=== PATIENT | male | born 1940 | race Caucasian/White ===

== ENCOUNTER 2017-02-21 13:36 | Day surgery (SDC) | payer MEDICARE, OTHER ==
[~2017-02-21 13:36] MED LIST: CEFAZOLIN 2 GM-D5W BAG** 2 GM/50 ML ML IV STA; DIPRIVAN 200 MG/20 ML IV ONE; Decadron 4 MG INJ IV ONE; Lactated Ringers 1,000 ML IV ONE; Lactated Ringers 1,000 ML IV SCH; MEFOXIN 2 GM PREMIX** 2 GM/50 ML ML IV ONE; PHENYLEPHRINE HCL IV ONE; SUBLIMAZE 100 MCG/2 ML IV ONE; Sensorcaine 0.25% 10 ML ONE; Zofran 4 MG/2 ML VIAL IV ONE
[2017-02-21] MEDS ORDERED: CEFAZOLIN 2 GM-D5W BAG** 2 GM/50 ML ML IV ONE (14:15)
[2017-02-21] MEDS ORDERED: BACIGUENT 30 GM ONE (15:53)
[2017-02-21] MEDS ORDERED: DILAUDID 2 MG INJECTION ONE (16:14)
[2017-02-21 17:55] VITALS: O2SAT 93
[2017-02-21 18:04] VITALS: BP 127/80; PULSE 99
--- NOTE | 2017-02-22 07:35 | OP ---
SURGERY DATE/TIME: 02/21/2017 1525 PREOPERATIVE DIAGNOSIS: Recurrent severe bursitis, chronic bursitis of the left elbow. POSTOPERATIVE DIAGNOSIS: Recurrent severe bursitis, chronic bursitis of the left elbow. PROCEDURE: Complete excision of the left bursa with closure. SURGEON: Jorge Wick M.D. ANESTHESIA: General. COMPLICATIONS: None. CONDITION: Stable. INDICATION: The patient h ad previous I&D drainage of bursitis. He has a large sac on the left elbow. It is chronic. It is persistent. It is recurring. DESCRIPTION OF PROCEDURE: He was taken to surgery. General anesthetic. It was marked transversely. A small ellipse was taken. Hemostasis obtained with electrocautery. The bursa sac was removed. As usual there was about an [address] of bone only which was cauterized at the bottom of the base. The skin was then reapproximated with 3-0 Prolene. Sterile dressing applied. The patient tolerated the procedure satisfactorily.
== END 2017-02-21 17:45 | disposition home or self-care (01) ==
LOC: SDC 13:36
PROVIDERS: ATTEND Surgery
PROC: 0MB40ZZ Excision of Left Elbow Bursa and Ligament, Open Approach (ICD-10-PCS; principal; 2017-02-21)
DX: M71.522 Other bursitis, not elsewhere classified, left elbow (principal); E11.9 Type 2 diabetes mellitus without complications; Z79.4 Long term (current) use of insulin
CPT/HCPCS: 01710; 36415; 82962; 88304; 99100; J0690; J0694; J1100; J1170; J2370; J2405; J2704; J3010; A9270-GY

== ENCOUNTER 2019-02-25 07:35 | Day surgery (SDC) | payer MEDICARE, OTHER ==
[2019-02-25] MEDS ORDERED: Sodium Chloride 0.9(Preservative Free) 10 ML IJ ONE (07:36)
[2019-02-25] MEDS ORDERED: Xylocaine 1% Vial 30 ML PF IJ ONE (07:36)
[2019-02-25] MEDS ORDERED: Depo-Medrol 40 MG/ML IM ONE (07:36)
[2019-02-25] MEDS ORDERED: DIPRIVAN 200 MG/20 ML IV ONE (08:30)
[2019-02-25] MEDS ORDERED: Ketamine HCl 50 MG/ML ONE (08:31)
[2019-02-25] MEDS ORDERED: Lactated Ringers 1,000 ML IV ONE (11:15)
--- NOTE | 2019-02-25 15:17 | XRAY ---
12 seconds fluoroscopy time in surgery for L3-L4 HERNANDO.
--- NOTE | 2019-02-27 10:25 | XRAY ---
Indication: L3-L4 HERNANDO. Intraoperative fluoroscopy was provided for 12 seconds. 2 digital spot images submitted for interpretation demonstrates midline spinal needle tip just posterior to the L4 segment. Correlate with intraoperative findings/report.
== END 2019-02-25 09:45 | disposition home or self-care (01) ==
LOC: SDC-PAIN 07:35
PROVIDERS: ATTEND Psychiatry & Neurology Pain Medicine
DX: M54.16 Radiculopathy, lumbar region (principal); E11.9 Type 2 diabetes mellitus without complications; I10 Essential (primary) hypertension; K21.9 Gastro-esophageal reflux disease without esophagitis; I25.10 Atherosclerotic heart disease of native coronary artery without angina pectoris; Z79.899 Other long term (current) drug therapy
CPT/HCPCS: 62323; 72100; 77003; 82962; J1030; J2001; J2704; Q9966

== ENCOUNTER 2019-03-25 09:04 | Day surgery (SDC) | payer MEDICARE, OTHER ==
[2019-03-25] MEDS ORDERED: Depo-Medrol 40 MG/ML IM ONE (09:05)
[2019-03-25] MEDS ORDERED: Sodium Chloride 0.9(Preservative Free) 10 ML IJ ONE (09:05)
[2019-03-25] MEDS ORDERED: DIPRIVAN 200 MG/20 ML IV ONE (10:11)
[2019-03-25] MEDS ORDERED: Ketamine HCl 50 MG/ML ONE (10:11)
--- NOTE | 2019-03-25 12:16 | XRAY ---
Indication: Right L4-S1 HERNANDO. Intraoperative fluoroscopy was provided for 40 seconds. 4 digital spot images submitted for interpretation demonstrates posterior needle tips projecting over the expected course of the right L4-L5 nerve roots. Small amount of contrast injected for needle tip placement. Correlate with intraoperative findings/report.
--- NOTE | 2019-03-25 13:13 | XRAY ---
40 seconds fluoroscopy time in surgery for right L4-S1 HERNANDO.
[2019-03-25] MEDS ORDERED: Lactated Ringers 1,000 ML IV ONE (13:20)
== END 2019-03-25 10:43 | disposition home or self-care (01) ==
LOC: SDC-PAIN 09:04
PROVIDERS: ATTEND Psychiatry & Neurology Pain Medicine
DX: M54.16 Radiculopathy, lumbar region (principal); I10 Essential (primary) hypertension; K21.9 Gastro-esophageal reflux disease without esophagitis; I25.10 Atherosclerotic heart disease of native coronary artery without angina pectoris; Z79.899 Other long term (current) drug therapy
CPT/HCPCS: 64483; 64484; 72100; 77003; 99100; J1030; J2704; Q9966

== ENCOUNTER 2019-05-13 07:43 | Day surgery (SDC) | payer MEDICARE, OTHER ==
[2019-05-13] MEDS ORDERED: Xylocaine 1% Vial 30 ML PF IJ ONE (07:44)
[2019-05-13] MEDS ORDERED: Depo-Medrol 40 MG/ML IM ONE (07:44)
[2019-05-13] MEDS ORDERED: Marcaine 0.5% SDV 10 ML IJ ONE (07:44)
[2019-05-13] MEDS ORDERED: Decadron 4 MG INJ IV ONE (07:44)
[2019-05-13] MEDS ORDERED: DIPRIVAN 200 MG/20 ML IV ONE (09:49)
[2019-05-13] MEDS ORDERED: Ketamine HCl 50 MG/ML ONE (09:49)
--- NOTE | 2019-05-13 10:41 | XRAY ---
Indication: Right bursa injection. Intraoperative fluoroscopy was provided for 12 seconds. Single digital spot image obtained prone demonstrates needle tip adjacent to the right greater trochanter. Small amount of contrast injected for needle tip placement. Correlate with intraoperative findings/report. Incidental note of prior total hip arthroplasty.
--- NOTE | 2019-05-13 10:43 | XRAY ---
Indication: Right piriformis injection. Intraoperative fluoroscopy was provided for 20 seconds. Single digital spot image obtained prone demonstrates needle tip projecting over the expected right piriformis muscle. Small amount of contrast injected for needle tip placement. Correlate with intraoperative findings/report. Incidental note of prior total hip arthroplasty.
--- NOTE | 2019-05-13 12:28 | XRAY ---
12 seconds fluoroscopy time in surgery for right hip bursae injection.
--- NOTE | 2019-05-13 12:38 | XRAY ---
20 seconds fluoroscopy time in surgery for piriformis injection.
[2019-05-13] MEDS ORDERED: Lactated Ringers 1,000 ML IV ONE (15:23)
== END 2019-05-13 10:15 | disposition home or self-care (01) ==
LOC: SDC-PAIN 07:43
PROVIDERS: ATTEND Psychiatry & Neurology Pain Medicine
DX: M70.61 Trochanteric bursitis, right hip (principal); M79.18 Myalgia, other site; M54.31 Sciatica, right side; E11.9 Type 2 diabetes mellitus without complications; I10 Essential (primary) hypertension; I25.10 Atherosclerotic heart disease of native coronary artery without angina pectoris; K21.9 Gastro-esophageal reflux disease without esophagitis; Z79.899 Other long term (current) drug therapy
CPT/HCPCS: 20552; 20610; 72020; 73501; 77002; 82962; J1030; J1100; J2001; J2704; Q9966

== ENCOUNTER 2019-06-10 08:42 | Day surgery (SDC) | payer MEDICARE, OTHER ==
[2019-06-10] MEDS ORDERED: Sodium Chloride 0.9(Preservative Free) 10 ML IJ ONE (08:43)
[2019-06-10] MEDS ORDERED: Depo-Medrol 40 MG/ML IM ONE (08:43)
[2019-06-10] MEDS ORDERED: DIPRIVAN 200 MG/20 ML IV ONE (10:16)
[2019-06-10] MEDS ORDERED: Ketamine HCl 50 MG/ML ONE (10:17)
--- NOTE | 2019-06-10 12:47 | XRAY ---
Indication: Right L4-S1 HERNANDO. Intraoperative fluoroscopy was provided for 41 seconds. 4 digital spot images submitted for interpretation demonstrates posterior needle tips projecting over the expected course of the right L4-L5 nerve roots. Small amount of contrast injected for needle tip placement. Correlate with intraoperative findings/report.
--- NOTE | 2019-06-10 12:51 | XRAY ---
41 seconds fluoroscopy time in surgery for right L4-S1 HERNANDO.
[2019-06-10] MEDS ORDERED: Lactated Ringers 1,000 ML IV ONE (18:20)
== END 2019-06-10 10:56 | disposition home or self-care (01) ==
LOC: SDC-PAIN 08:42
PROVIDERS: ATTEND Psychiatry & Neurology Pain Medicine
DX: M54.16 Radiculopathy, lumbar region (principal); Z79.899 Other long term (current) drug therapy
CPT/HCPCS: 64479; 64480; 72100; 77003; 82962; 99100; J1030; J2704; Q9966

== ENCOUNTER 2019-08-19 07:56 | Day surgery (SDC) | payer MEDICARE, OTHER ==
[2019-08-19] MEDS ORDERED: Xylocaine 1% Vial 30 ML PF IJ ONE (07:57)
[2019-08-19] MEDS ORDERED: Decadron 4 MG INJ IV ONE (07:57)
[2019-08-19] MEDS ORDERED: Depo-Medrol 40 MG/ML IM ONE (07:57)
[2019-08-19] MEDS ORDERED: Sodium Chloride 0.9(Preservative Free) 10 ML IJ ONE (07:57)
[2019-08-19] MEDS ORDERED: DIPRIVAN 200 MG/20 ML IV ONE (09:40)
[2019-08-19] MEDS ORDERED: Ketamine HCl 50 MG/ML ONE (09:42)
--- NOTE | 2019-08-19 11:57 | XRAY ---
Indication: Right L4-S1 transforaminal HERNANDO. Intraoperative fluoroscopy was provided for 43 seconds. 3 digital spot images submitted for interpretation demonstrates posterior needle tips projecting over the expected course of the right L4 and L5 nerve roots. Small amount of contrast injected for needle tip placement. Correlate with intraoperative findings/report.
--- NOTE | 2019-08-19 11:59 | XRAY ---
Indication: Right piriformis injection. Intraoperative fluoroscopy was provided for 10 seconds. Single digital spot image submitted for interpretation demonstrates posterior needle tip projecting over the expected right piriformis muscle. Small amount of contrast injected for needle tip placement. Correlate with intraoperative findings/report.
--- NOTE | 2019-08-19 13:06 | XRAY ---
43 seconds fluoroscopy time in surgery for right L4-S1 transforaminal HERNANDO.
--- NOTE | 2019-08-19 13:06 | XRAY ---
10 seconds fluoroscopy time in surgery for right piriformis muscle injection.
[2019-08-19] MEDS ORDERED: Lactated Ringers 1,000 ML IV ONE (13:30)
== END 2019-08-19 10:10 | disposition home or self-care (01) ==
LOC: SDC-PAIN 07:56
PROVIDERS: ATTEND Psychiatry & Neurology Pain Medicine
DX: M54.16 Radiculopathy, lumbar region (principal); M79.18 Myalgia, other site; M54.31 Sciatica, right side; I10 Essential (primary) hypertension; K21.9 Gastro-esophageal reflux disease without esophagitis; Z79.899 Other long term (current) drug therapy
CPT/HCPCS: 20552; 64483; 64484; 72020; 72100; 77002; 77003; 82962; 99100; J1030; J1100; J2001; J2704; Q9966

== ENCOUNTER 2019-12-09 09:30 | Day surgery (SDC) | payer MEDICARE, OTHER ==
[2019-12-09] MEDS ORDERED: Sodium Chloride 0.9(Preservative Free) 10 ML IJ ONE (09:31)
[2019-12-09] MEDS ORDERED: Depo-Medrol 40 MG/ML IM ONE (09:31)
[2019-12-09] MEDS ORDERED: Decadron 4 MG INJ IV ONE (09:31)
[2019-12-09] MEDS ORDERED: Xylocaine 1% Vial 30 ML PF IJ ONE (09:31)
[2019-12-09] MEDS ORDERED: Ketamine HCl 50 MG/ML ONE (11:13)
[2019-12-09] MEDS ORDERED: DIPRIVAN 200 MG/20 ML IV ONE (11:13)
--- NOTE | 2019-12-09 11:54 | XRAY ---
Indication: Right L3-S1 HERNANDO. Intraoperative fluoroscopy was provided for 43 seconds. 4 digital spot images submitted for interpretation demonstrates posterior needle tips projecting over the expected course the right L4 and L5 nerve roots. Small amount of contrast injected for both needle tip placement. Correlate with intraoperative findings/report.
--- NOTE | 2019-12-09 11:57 | XRAY ---
17 seconds fluoroscopy time in surgery for right piriformis injection.
--- NOTE | 2019-12-09 12:07 | XRAY ---
43 seconds fluoroscopy time in surgery for right L3-L5 transforaminal HERNANDO.
--- NOTE | 2019-12-09 14:25 | XRAY ---
Indication: Right piriformis injection. Intraoperative fluoroscopy was provided for 17 seconds. Single digital spot image submitted for interpretation demonstrates posterior needle tip projecting over the expected right piriformis muscle. Small amount of contrast injected for needle tip placement. Correlate with intraoperative findings/report.
[2019-12-09] MEDS ORDERED: Lactated Ringers 1,000 ML IV ONE (14:32)
== END 2019-12-09 11:47 | disposition home or self-care (01) ==
LOC: SDC-PAIN 09:30
PROVIDERS: ATTEND Psychiatry & Neurology Pain Medicine
DX: M54.16 Radiculopathy, lumbar region (principal); M79.18 Myalgia, other site; E11.9 Type 2 diabetes mellitus without complications; I10 Essential (primary) hypertension; K21.9 Gastro-esophageal reflux disease without esophagitis; I25.10 Atherosclerotic heart disease of native coronary artery without angina pectoris; J44.9 Chronic obstructive pulmonary disease, unspecified; Z79.899 Other long term (current) drug therapy
CPT/HCPCS: 20552; 64483; 64484; 72020; 72100; 77002; 77003; 82962; 99100; J1030; J1100; J2001; J2704; Q9966

== ENCOUNTER 2020-02-03 09:09 | Day surgery (SDC) | payer MEDICARE, OTHER ==
[2020-02-03] MEDS ORDERED: Xylocaine 1% Vial 30 ML PF IJ ONE (09:10)
[2020-02-03] MEDS ORDERED: Sodium Chloride 0.9(Preservative Free) 10 ML IJ ONE (09:10)
[2020-02-03] MEDS ORDERED: Depo-Medrol 40 MG/ML IM ONE (09:10)
[2020-02-03] MEDS ORDERED: Decadron 4 MG INJ IV ONE (09:10)
[2020-02-03] MEDS ORDERED: Ketamine HCl 50 MG/ML ONE (10:03)
[2020-02-03] MEDS ORDERED: DIPRIVAN 200 MG/20 ML IV ONE (10:03)
--- NOTE | 2020-02-03 11:02 | XRAY ---
Indication: Right L4-S1 transforaminal HERNANDO. Intraoperative fluoroscopy was provided for 43 seconds. 4 digital spot images submitted for interpretation demonstrates posterior needle tips projecting over the expected course of the right L5 and S1 nerve roots. Small amount of contrast injected for needle tip placement. Correlate with intraoperative findings/report.
--- NOTE | 2020-02-03 11:04 | XRAY ---
Indication: Right piriformis injection HERNANDO. Intraoperative fluoroscopy was provided for 9 seconds. Single digital spot image submitted for interpretation demonstrates posterior needle tip projecting over the expected right piriformis muscle. Small amount of contrast injected for needle tip placement. Correlate with intraoperative findings/report.
--- NOTE | 2020-02-03 11:49 | XRAY ---
9 seconds of fluoroscopy was used in surgery for a right piriformis injection.
--- NOTE | 2020-02-03 11:59 | XRAY ---
43 seconds of fluoroscopy was used in surgery for a right L4-L5 and L-S1 transforaminal HERNANDO.
[2020-02-03] MEDS ORDERED: Lactated Ringers 1,000 ML IV ONE (15:55)
== END 2020-02-03 10:35 | disposition home or self-care (01) ==
LOC: SDC-PAIN 09:09
PROVIDERS: ATTEND Psychiatry & Neurology Pain Medicine
DX: M54.16 Radiculopathy, lumbar region (principal); M79.18 Myalgia, other site; I10 Essential (primary) hypertension; I25.10 Atherosclerotic heart disease of native coronary artery without angina pectoris; K21.9 Gastro-esophageal reflux disease without esophagitis; Z79.899 Other long term (current) drug therapy
CPT/HCPCS: 20552; 64483; 64484; 72020; 72100; 77002; 77003; 99100; J1030; J1100; J2001; J2704; Q9966

== ENCOUNTER 2020-08-10 08:02 | Day surgery (SDC) | payer MEDICARE, OTHER ==
[2020-08-10] MEDS ORDERED: Sodium Chloride 0.9(Preservative Free) 10 ML IJ ONE (08:03)
[2020-08-10] MEDS ORDERED: Decadron 4 MG INJ IV ONE (08:03)
[2020-08-10] MEDS ORDERED: BUPIVACAINE 0.5% VIAL IJ ONE (08:03)
[2020-08-10] MEDS ORDERED: Depo-Medrol 40 MG/ML IM ONE (08:03)
[2020-08-10] MEDS ORDERED: Xylocaine 1% Vial 30 ML PF IJ ONE (08:03)
[2020-08-10] MEDS ORDERED: Ketamine HCl 50 MG/ML ONE (09:47)
[2020-08-10] MEDS ORDERED: DIPRIVAN 200 MG/20 ML IV ONE (09:47)
[2020-08-10] MEDS ORDERED: MORPHINE SULFATE 10 MG/ML ONE (10:18)
--- NOTE | 2020-08-10 10:49 | XRAY ---
Indication: Right SI joint and right piriformis injection. Intraoperative fluoroscopy was provided for 14 seconds. 3 digital spot images submitted for interpretation demonstrates posterior needle tip projecting over the inferior right SI joint. Second posterior needle tip projects over the expected right piriformis muscle with small amount of contrast injected for needle tip placement. Correlate with intraoperative findings/report.
--- NOTE | 2020-08-10 10:51 | XRAY ---
14 seconds fluoroscopy time in surgery for right SI joint and right piriformis muscle injections.
--- NOTE | 2020-08-10 10:51 | XRAY ---
Indication: Right L4-S1 transforaminal HERNANDO. Intraoperative fluoroscopy was provided for 1 minute 7 seconds. 4 digital spot images submitted for interpretation demonstrates posterior needle tips projecting over the expected right L4 and L5 nerve roots. Small amount of contrast injected for needle tip placement. Correlate with intraoperative findings/report.
--- NOTE | 2020-08-10 10:51 | XRAY ---
1 minute and 7 seconds fluoroscopy time in surgery for right L4-S1 caudal HERNANDO.
[2020-08-10] MEDS ORDERED: Lactated Ringers 1,000 ML IV ONE (15:26)
== END 2020-08-10 10:34 | disposition home or self-care (01) ==
LOC: SDC 08:02 → SDC-PAIN 08:02
PROVIDERS: ATTEND Psychiatry & Neurology Pain Medicine
DX: M47.816 Spondylosis without myelopathy or radiculopathy, lumbar region (principal); M46.1 Sacroiliitis, not elsewhere classified; M79.18 Myalgia, other site; M60.9 Myositis, unspecified; M54.31 Sciatica, right side; E11.9 Type 2 diabetes mellitus without complications; I10 Essential (primary) hypertension; I25.10 Atherosclerotic heart disease of native coronary artery without angina pectoris; K21.9 Gastro-esophageal reflux disease without esophagitis; Z79.899 Other long term (current) drug therapy
CPT/HCPCS: 20552; 64451; 64483; 64484; 72100; 72202; 77002; 77003; 82947; 82962; 99100; J1030; J1100; J2001; J2270; J2704; Q9966

== ENCOUNTER 2020-10-05 08:03 | Day surgery (SDC) | payer MEDICARE, OTHER ==
[2020-10-05] MEDS ORDERED: Depo-Medrol 40 MG/ML IM ONE (08:04)
[2020-10-05] MEDS ORDERED: Sodium Chloride 0.9(Preservative Free) 10 ML IJ ONE (08:04)
[2020-10-05] MEDS ORDERED: Xylocaine 1% Vial 30 ML PF IJ ONE (08:04)
[2020-10-05] MEDS ORDERED: DIPRIVAN 200 MG/20 ML IV ONE (09:43)
[2020-10-05] MEDS ORDERED: Ketamine HCl 50 MG/ML ONE (09:43)
--- NOTE | 2020-10-05 11:34 | XRAY ---
Indication: Caudal HERNANDO. Intraoperative fluoroscopy provided for 22 seconds. 4 digital spot images submitted for interpretation demonstrates midline posterior caudal needle tip projecting posterior to mid sacrum. Small amount of contrast injected for needle tip placement. Correlate with intraoperative findings/report.
--- NOTE | 2020-10-05 11:37 | XRAY ---
22 seconds fluoroscopy time in surgery for caudal HERNANDO.
[2020-10-05] MEDS ORDERED: Lactated Ringers 1,000 ML IV ONE (16:08)
== END 2020-10-05 10:22 | disposition home or self-care (01) ==
LOC: SDC-PAIN 08:03
PROVIDERS: ATTEND Psychiatry & Neurology Pain Medicine
DX: M54.16 Radiculopathy, lumbar region (principal); I25.10 Atherosclerotic heart disease of native coronary artery without angina pectoris; I10 Essential (primary) hypertension; K21.9 Gastro-esophageal reflux disease without esophagitis; Z79.899 Other long term (current) drug therapy
CPT/HCPCS: 62323; 72220; 77003; 82947; J1030; J2001; J2704; Q9966

== ENCOUNTER 2020-12-14 07:50 | Day surgery (SDC) | payer MEDICARE, OTHER ==
[2020-12-14] MEDS ORDERED: Xylocaine 1% Vial 30 ML PF IJ ONE (07:51)
[2020-12-14] MEDS ORDERED: BUPIVACAINE 0.5% VIAL IJ ONE (07:51)
[2020-12-14] MEDS ORDERED: Depo-Medrol 40 MG/ML IM ONE (07:51)
[2020-12-14] MEDS ORDERED: Sodium Chloride 0.9(Preservative Free) 10 ML IJ ONE (07:51)
[2020-12-14] MEDS ORDERED: DIPRIVAN 200 MG/20 ML IV ONE (08:54)
--- NOTE | 2020-12-14 10:42 | XRAY ---
Indication: Right hip injection. Intraoperative fluoroscopy provided for 10 seconds. Single digital spot image obtained prone submitted for interpretation demonstrates needle tip just lateral to right greater trochanter. Small amount of contrast injected for needle tip placement. Correlate with intraoperative findings/report. Incidental incompletely visualized total hip arthroplasty.
--- NOTE | 2020-12-14 10:44 | XRAY ---
Indication: Caudal HERNANDO. Intraoperative fluoroscopy provided for 27 seconds. 3 digital spot images submitted for interpretation demonstrates posterior midline needle tip projecting over sacrococcygeal junction. Small amount of contrast injected for needle tip placement. Correlate with intraoperative findings/report.
--- NOTE | 2020-12-14 11:00 | XRAY ---
27 seconds fluoroscopy time in surgery for caudal HERNANDO.
--- NOTE | 2020-12-14 11:10 | XRAY ---
10 seconds fluoroscopy time in surgery for greater trochanteric injection of the right hip.
[2020-12-14] MEDS ORDERED: Lactated Ringers 1,000 ML IV ONE (15:26)
== END 2020-12-14 09:22 | disposition home or self-care (01) ==
LOC: SDC-PAIN 07:50
PROVIDERS: ATTEND Psychiatry & Neurology Pain Medicine
DX: M54.16 Radiculopathy, lumbar region (principal); M70.61 Trochanteric bursitis, right hip; I10 Essential (primary) hypertension; I25.10 Atherosclerotic heart disease of native coronary artery without angina pectoris; Z79.899 Other long term (current) drug therapy
CPT/HCPCS: 20610; 62323; 72020; 73501; 77002; 77003; 82947; J1030; J2001; J2704

== ENCOUNTER 2021-05-03 06:19 | Day surgery (SDC) | payer MEDICARE, OTHER ==
[2021-05-03] MEDS ORDERED: Sodium Chloride 0.9(Preservative Free) 10 ML IJ ONE (06:20)
[2021-05-03] MEDS ORDERED: Xylocaine 1% Vial 30 ML PF IJ ONE (06:20)
[2021-05-03] MEDS ORDERED: CEFAZOLIN 2 GM-D5W BAG IV ONE (06:20)
[2021-05-03] MEDS ORDERED: DIPRIVAN 200 MG/20 ML IV ONE (06:53)
[2021-05-03] MEDS ORDERED: MORPHINE SULFATE 2 MG INJ ONE ×2 (08:32→08:46)
--- NOTE | 2021-05-03 10:12 | XRAY ---
Indication: Spinal cord stimulator insertion. Intraoperative fluoroscopy provided for 2 minutes 44 seconds. 2 digital spot images submitted for interpretation demonstrates epidural lead tip terminating at recorded T8 level. Correlate with intraoperative findings/report.
--- NOTE | 2021-05-03 10:22 | XRAY ---
2 minutes and 44 seconds fluoroscopy time in surgery for placement of spinal cord stimulator.
[2021-05-03] MEDS ORDERED: Lactated Ringers 1,000 ML IV ONE (15:17)
== END 2021-05-03 08:50 | disposition home or self-care (01) ==
LOC: SDC-PAIN 06:19
PROVIDERS: ATTEND Psychiatry & Neurology Pain Medicine
DX: M96.1 Postlaminectomy syndrome, not elsewhere classified (principal); E11.9 Type 2 diabetes mellitus without complications; Z79.899 Other long term (current) drug therapy
CPT/HCPCS: 63650; 72100; 77002; 82947; C1778; 99100; J0690; J2001; J2270; J2704

== ENCOUNTER 2021-09-15 13:34 | Emergency (ER) | payer MEDICARE, OTHER ==
--- NOTE | 2021-09-15 13:37 | ERPHSYRPT ---
- History of Present Illness Time Seen by Provider: 09/15/21 13:37 Source: patient, EMS Exam Limitations: no limitations Physician History: This is an 81-year-old right-handed white male patient of Dr. Gutierrez who presents to the emergency department via EMS after slipping and falling on the ice. He hit his right shoulder. He has no complaints of any head or neck injury or pain. There was no loss of consciousness. Patient is diabetic, has a history of hypertension, coronary artery disease, COPD and elevated cholesterol. Patient is on Plavix and Celebrex. Patient has cardiac stents in place. He denies chest pain. He denies shortness of breath. Occurred: just prior to arrival (Right shoulder) Reason for Fall: slipped (Slipped on ice) Injuries/Pain Location: upper extremity Loss of Consciousness: no loss of consciousness Quality: aching Severity of Pain-Max: moderate Severity of Pain-Current: moderate Associated Symptoms (Fall): extremity injury (Right shoulder), No neck pain Allergies/Adverse Reactions: morphine Adverse Reaction (Verified 02/21/17 17:55) Home Medications: Aspirin 81 mg PO DAILY 02/23/15 [History] Celecoxib 100 mg [celeBREX 100 MG] 200 mg PO DAILY 02/23/15 [History] Enalapril Maleate 10 mg [Vasotec 10 MG] 10 mg PO DAILY 02/23/15 [History] Metformin HCl 500 mg [Glucophage 500 MG] 750 mg PO DAILY 02/23/15 [History] hydroCHLOROthiazide [Hydrochlorothiazide] 12.5 mg PO DAILY 02/23/15 [History] Gabapentin 800 mg PO TID 02/05/17 [History] Atorvastatin Calcium [Lipitor] 20 mg PO DAILY 05/23/20 [History] Clopidogrel Bisulfate 75 mg [PLAVIX 75 MG Tablet] 75 mg PO DAILY 05/23/20 [History] Metoprolol Tartrate 25 mg [Lopressor 25MG Tab] 25 mg PO DAILY 05/23/20 [History] Hx Tetanus, Diphtheria Vaccination/Date Given: No Hx Influenza Vaccination/Date Given: No Hx Pneumococcal Vaccination/Date Given: No Travel Risk - International Travel Have you traveled outside of the country in past 3 weeks: No - Coronavirus Screening Are you exhibiting any of the following symptoms?: No Close contact with a COVID-19 positive Pt in past 14-21 Days: No - Review of Systems Constitutional: No Symptoms Eyes: No Symptoms Ears, Nose, & Throat: No Symptoms Respiratory: No Symptoms Cardiac: No Symptoms Abdominal/Gastrointestinal: No Symptoms Genitourinary Symptoms: No Symptoms Musculoskeletal: Fall, Injury (Right shoulder) Skin: No Symptoms Neurological: No Symptoms Psychological: No Symptoms Endocrine: No Symptoms Hematologic/Lymphatic: No Symptoms Immunological/Allergic: No Symptoms All Other Systems: Reviewed and Negative - Past Medical History Pertinent Past Medical History: Yes Neurological History: No Pertinent History ENT History: No Pertinent History Cardiac History: Coronary Artery Disease, High Cholesterol, Hypertension, Myocardial Infarction (PR), Other Respiratory History: Bronchitis, COPD, Emphysema Endocrine Medical History: Diabetes Type II Musculoskeletal History: Osteoarthritis GI Medical History: Diverticulitis History: Other Psycho-Social History: No Pertinent History Male Reproductive Disorders: No Pertinent History Other Medical History: PT. HAS THREE CARDIAC STENTS. SEE LIST IN START. RECENT KIDNEY STONE REMOVED. 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 cyst removed from colon - Social History Smoking Status: Current every day smoker How long have you smoked: 50 Exposure to second hand smoke: No Drug Use: none Patient Lives Alone: No - Nursing Vital Signs Nursing Vital Signs: Initial Vital Signs Temperature 97.6 F 09/15/21 13:34 Pulse Rate 65 09/15/21 13:34 Respiratory Rate 20 09/15/21 13:34 Blood Pressure 114/72 09/15/21 13:34 O2 Sat by Pulse Oximetry 96 09/15/21 13:34 Pain Scale Pain Intensity 5 - Evan Coma Score Best Eye Response ([place]): (4) open spontaneously Best Verbal Response ([place]): (5) oriented Best Motor Response ([place]): (6) obeys commands Evan Total: 15 - Physical Exam General Appearance: mild distress, alert, anxiety Head Injury: no evidence of injury Eye Exam: PERRL/EOMI, eyes nml inspection ENT Exam: airway nml, nml ext.inspection Neck Exam: supple, trachea midline, full range of motion, normal alignment, normal inspection Respiratory/Chest Exam: normal breath sounds, No chest tenderness, No respiratory distress, No ecchymosis, No crepitus Cardiovascular Exam: normal heart sounds, regular rate/rhythm Gastrointestinal Exam: soft, normal bowel sounds, No tenderness Rectal Exam: not done Back Exam: normal inspection, normal range of motion, No CVA tenderness, No vertebral tenderness Extremity Exam: normal range of motion, pelvis stable, deformities (Right shoulder), limited range of motion (Right shoulder), bony point tenderness, pain with movement (Upper humerus/right shoulder right shoulder), other (Question of fullness at the right anterior shoulder) Neurologic Exam: alert, oriented x 3, cooperative, step down nurse II-XII nml as tested, normal mood/affect, nml cerebellar function, nml station & gait, sensation nml Skin Exam: normal color, warm, dry SpO2 Interpretation: normal O2 Delivery: Room Air - Course Nursing assessment & vital signs reviewed: Yes Ordered Tests: Active Orders 24 hr Category Date Time Status Sling Application STAT Care 09/15/21 14:23 Active CLAVICLE Stat Exams 09/15/21 14:07 Completed HUMERUS Stat Exams 09/15/21 13:45 Completed SHOULDER Stat Exams 09/15/21 13:45 Completed CBC W DIFF Stat Lab 09/15/21 14:23 Ordered PT INR [PROTIME WITH INR] Stat Lab 09/15/21 14:23 Ordered Medication Summary Discontinued Medications Generic Name Dose Route Start Last Admin Trade Name Kishoreq PRN Reason Stop Dose Admin Hydromorphone HCl 0.5 mg 09/15/21 13:44 09/15/21 13:48 Hydromorphone 1 Mg/1ml Inj 1 Mg/Ml Syringe IV 09/15/21 13:45 0.5 mg STAT ONE Administration Hydromorphone HCl Confirm 09/15/21 13:47 Hydromorphone 1 Mg/1ml Inj 1 Mg/Ml Syringe Administered 09/15/21 13:48 Dose 1 mg .ROUTE .STK-MED ONE - Progress Progress: improved, pain not gone completely Progress Note: 09/15/21 14:32 X-rays of the right shoulder, right humerus and right clavicle were performed. The findings are same on all studies. That is, nondisplaced humeral head/neck fracture with tiny displaced superior lateral fracture fragment. There are no other bony fractures present in any of the studies Counseled pt/family regarding: lab results, diagnosis, need for follow-up, rad results - Departure Departure Disposition: Home Clinical Impression: Fracture of humeral head, closed Condition: Stable Critical Care Time: No Referrals: RITO GUTIERREZ MD [Primary Care Provider] - Follow up/PCP as directed Additional Instructions: Ice pack to area 3 times daily for the next 72 hours. Wear the sling for comfort. Stop your Plavix and Celebrex. Return to the emergency department if your swelling in the area increases or the pain in the area increases. Follow- up with your orthopedic surgeon of choice at the scheduled date and time. If you are unable to secure an appointment with your orthopedic surgeon, follow-up with [facility] orthopedic clinic on Saturday September 18, 2021 at 8 AM. It is a walk-in clinic and you do not need a scheduled appointment. Call your veneer joiner on Saturday, September 18, 2021 to determine when to restart your Plavix and Celebrex. Prescriptions: Oxycodone HCl/Acetaminophen [Percocet 5-325 mg Tablet] 1 each PO Q8H PRN PRN #10 tablet MDD 3 PRN Reason: Moderate To Severe Pain
[2021-09-15] MEDS ORDERED: Hydromorphone 1 mg/ml Injection IV ONE ×2 (13:44→14:58)
[2021-09-15] MEDS ORDERED: Hydromorphone 1 mg/ml Injection ONE ×2 (13:47→15:11)
--- NOTE | 2021-09-15 14:18 | XRAY ---
Indication: Pain following fall. Comparison: None 3 view right shoulder demonstrates osteopenia, essentially nondisplaced humeral head/neck fracture with tiny displaced superior lateral fracture fragment, advanced acromioclavicular degenerative arthropathy, and partially visualized bilateral cervical fusion hardware. No other bony, articular, or soft tissue abnormalities.
--- NOTE | 2021-09-15 14:18 | XRAY ---
Indication: Pain following fall. Comparison: None 2 view right clavicle demonstrates osteopenia, essentially nondisplaced humeral head/neck fracture with tiny displaced superior lateral fracture fragment, advanced acromioclavicular degenerative arthropathy, and partially visualized bilateral cervical fusion hardware. No other bony, articular, or soft tissue abnormalities.
--- NOTE | 2021-09-15 14:20 | XRAY ---
Indication: Pain following fall. Comparison: None 2 view right humerus demonstrates osteopenia and nondisplaced humeral head/neck fracture. No other bony, articular, or soft tissue abnormalities.
[2021-09-15 15:02] LABS: INR 1.13 (0.8-3.0); PROTIME 13.3 SECONDS (9.4-12.5)
[2021-09-15 15:30] LABS: Absolute Neutrophil Ct (ANC) 10.26 (1.4-6.9); Basophil (Absolute #) 0.04 (0-0.4); Eosinophil % 1.1 % (0.00-5.0); Eosinophil (Absolute #) 0.14 (0-0.5); Hematocrit 57.8 % (42-50); Hemoglobin 18.6 gm/dl (12.5-18.0); Lymphocyte (Absolute #) 1.27 (1.0-4.6); Mean Cell Volume 99.1 fl (78-100); Mean Corpuscular Hemoglobin 31.9 pg (26-32); Mean Corpuscular Hgb Concent. 32.2 g/dl (32-36); Mean Platelet Volume 9.9 fl (7.5-11.0); Monocyte (Absolute #) 1.05 (0.0-1.3); Monocytes % 8.2 % (0.0-12.0); Neutrophil % 80.4 % (36.0-66.0); Platelet Count 216 K/mm3 (150-450); Red Blood Count 5.83 M/mm3 (4.1-5.6); Red Cell Distribution Width 16.1 % (11.5-14.0); White Blood Count 12.8 K/mm3 (4.0-10.5)
[2021-09-15 16:58] VITALS: BP 113/57; PULSE 76; O2SAT 98
== END 2021-09-15 16:58 | disposition home or self-care (01) ==
LOC: ED 13:34
DX: S42.214A Unspecified nondisplaced fracture of surgical neck of right humerus, initial encounter for closed fracture (principal); W00.0XXA Fall on same level due to ice and snow, initial encounter; I25.10 Atherosclerotic heart disease of native coronary artery without angina pectoris; E78.5 Hyperlipidemia, unspecified; I10 Essential (primary) hypertension; J43.9 Emphysema, unspecified; E11.9 Type 2 diabetes mellitus without complications; Z79.84 Long term (current) use of oral hypoglycemic drugs; Z72.0 Tobacco use; Z79.01 Long term (current) use of anticoagulants; Z79.899 Other long term (current) drug therapy; Z79.891 Long term (current) use of opiate analgesic
CPT/HCPCS: 36415; 73000; 73030; 73060; 85025; 85610; 96374; 99284; J1170

== ENCOUNTER 2024-03-12 14:25 | Observation (INO) | payer MEDICARE, OTHER ==
--- NOTE | 2024-03-12 15:59 | XRAY ---
Indication: Swelling. Comparison: None 3 view left elbow demonstrates osteopenia, faint medial/lateral elbow heterotopic ossifications, and small spurring medial epicondyle/olecranon process. Posterior soft tissue swelling either posttraumatic versus inflammatory/infectious versus bursitis. No other bony, articular, or soft tissue abnormalities.
[2024-03-12 16:06] LABS: Absolute Neutrophil Ct (ANC) 6.27 x10^3/uL (1.78-5.38); BASOPHIL % 0.5 % (0.2-1.2); Basophil (Absolute #) 0.05 x10^3/uL (0.01-0.08); Eosinophil % 0.9 % (0.8-7.0); Eosinophil (Absolute #) 0.08 x10^3/uL (0.04-0.54); Hematocrit 57.6 % (40.1-51.0); Hemoglobin 18.7 g/dL (13.7-17.5); IMMATURE GRAN # 0.04 x10^3u/L (0.001-0.031); IMMATURE GRAN % 0.4 % (0.001-0.429); Lymphocyte (Absolute #) 1.96 x10^3/uL (1.32-3.57); Lymphocytes % 20.8 % (21.8-53.1); Mean Cell Volume 97.5 fL (79.0-92.2); Mean Corpuscular Hemoglobin 31.6 pg (25.7-32.2); Mean Corpuscular Hgb Concent. 32.5 g/dL (32.3-36.5); Mean Platelet Volume 9.4 fL (9.4-12.4); Monocyte (Absolute #) 1.01 x10^3/uL (0.30-0.82); Monocytes % 10.7 % (5.3-12.2); Neutrophil % 66.7 % (34.0-67.9); Platelet Count 239 x10^3/uL (163-337); Red Blood Count 5.91 x10^6/uL (4.63-6.08); Red Cell Distribution Width 14.6 % (11.6-14.4); White Blood Count 9.4 x10^3/uL (4.23-9.07)
[2024-03-12 16:26] LABS: ALBUMIN 4.2 g/dL (3.5-5.0); ANION GAP 18.6 MEQ/L (5-15); BILIRUBIN,TOTAL 1.4 mg/dL (0.2-1.3); Calcium 9.5 mg/dL (8.4-10.2); Creatinine 1 0.83 mg/dL (0.66-1.25); EST GLOMERULAR FILTRATION RATE 86.8 ML/MIN; Potassium 4.1 mmol/L (3.5-5.1); Total Protein 7.5 g/dL (6.3-8.2)
--- NOTE | 2024-03-12 16:48 | ERPHSYRPT ---
- History of Present Illness Time Seen by Provider: 03/12/24 15:27 Source: patient, family Exam Limitations: no limitations Patient Subjective Stated Complaint: C/O swelling to left elbow for a few days. Indicates he has a reoccurring abcess to this area. Triage Nursing Assessment: Patient ambulated back to ER. He is alert and oriented; hard of hearing. Left elbow is red, hot, swollen. Pustules noted to area. Physician History: 84 years old male up-to-date with tetanus [id number] presented to the ER with 4 to 5 days history of increasing pain and swelling left elbow which got remarkably swollen and painful since yesterday. Subjective feeling of fever and chills. Difficulty movements of the left elbow. No numbness or tingling/weakness distally. Denies any fall or trauma. Reports having similar kind of swelling in the past needing surgical intervention. Allergies/Adverse Reactions: morphine Adverse Reaction (Verified 03/12/24 18:22) PT STATES "IN LARGE DOSES I GET MOUTHY AND MEAN" STATES GETS CONFUSED Home Medications: Aspirin 81 mg PO HS 02/23/15 [History] Celecoxib 100 mg [celeBREX 100 MG] 200 mg PO DAILY 02/23/15 [History] Enalapril Maleate 10 mg [Vasotec 10 MG] 10 mg PO DAILY 02/23/15 [History] hydroCHLOROthiazide [Hydrochlorothiazide] 12.5 mg PO DAILY 02/23/15 [History] Gabapentin 800 mg PO TID 02/05/17 [History] Atorvastatin Calcium [Lipitor] 20 mg PO HS 05/23/20 [History] Clopidogrel Bisulfate [PLAVIX Tablet] 75 mg PO HS 05/23/20 [History] Metoprolol Tartrate 25 mg [Lopressor 25MG Tab] 25 mg PO HS 05/23/20 [History] Empagliflozin [Jardiance] 10 mg PO DAILY 03/12/24 [History] Fluticasone/Umeclidin/Vilanter [Trelegy Ellipta 100-62.5-25] 1 puff IH DAILY 03/12/24 [History] Hx Tetanus, Diphtheria Vaccination/Date Given: Yes Hx Influenza Vaccination/Date Given: No Hx Pneumococcal Vaccination/Date Given: No Immunizations Up to Date: Yes Travel Risk - International Travel Have you traveled outside of the country in past 3 weeks: No - Emerging Infectious Disease Are you exhibiting symptoms associated with any current EIDs: No - Review of Systems Constitutional: Fever, Chills Eyes: No Symptoms Ears, Nose, & Throat: No Symptoms Respiratory: No Symptoms Cardiac: No Symptoms Abdominal/Gastrointestinal: No Symptoms Genitourinary Symptoms: No Symptoms Musculoskeletal: Joint Redness, Joint Pain, Joint Swelling Neurological: No Symptoms Endocrine: No Symptoms Hematologic/Lymphatic: No Symptoms - Past Medical History Pertinent Past Medical History: Yes Neurological History: No Pertinent History ENT History: No Pertinent History Cardiac History: Coronary Artery Disease, High Cholesterol, Hypertension, Myocardial Infarction ([place]), Other Respiratory History: Bronchitis, COPD, Emphysema Endocrine Medical History: Diabetes Type II Musculoskeletal History: Osteoarthritis GI Medical History: Diverticulitis History: Other Psycho-Social History: No Pertinent History Male Reproductive Disorders: No Pertinent History Other Medical History: PT. HAS THREE CARDIAC STENTS. SEE LIST IN START. RECENT KIDNEY STONE REMOVED. 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 cyst removed from colon - Social History Smoking Status: Current every day smoker How long have you smoked: 60 Exposure to second hand smoke: No Drug Use: none Patient Lives Alone: No - Social Determinants of Health Will the patient participate in the screening: Yes Do you worry about a steady place to live?: No Do you have any problems with any of the following?: No known problems In the past 12 months,have you had to go without utilities?: No Transportation Issues: No Has anyone in your support network made you feel unsafe?: No Have you or anyone in your house had to go without enough: No - Nursing Vital Signs Nursing Vital Signs: Initial Vital Signs Temperature 98 F 03/12/24 15:03 Pulse Rate 105 H 03/12/24 15:03 Respiratory Rate 18 03/12/24 15:03 Blood Pressure 155/82 03/12/24 15:03 O2 Sat by Pulse Oximetry 95 03/12/24 15:03 Pain Scale Pain Intensity 8 - Physical Exam General Appearance: no apparent distress, alert Neck Exam: normal inspection, full range of motion Cardiovascular/Respiratory Exam: normal breath sounds, regular rate/rhythm Back Exam: normal inspection Shoulder Exam: normal inspection, non-tender, no evidence of injury Elbow/Forearm Exam: limited ROM, pain, soft tissue tenderness, swelling (Left elbow with positive fluctuation. Diffuse swelling. Erythema. Tenderness. Limited range of motion secondary to swelling) Hand Exam: normal inspection, non-tender, no evidence of injury, normal ROM Neuro/Tendon Exam: normal sensation, normal tendon functions Mental Status Exam: alert, oriented x 3, cooperative Skin Exam: normal color SpO2 Interpretation: normal SpO2: 95 O2 Delivery: Room Air Ordered Tests: Medication Summary Discontinued Medications Generic Name Dose Route Start Last Admin Trade Name Freq PRN Reason Stop Dose Admin Acetaminophen 650 mg 03/12/24 18:59 Acetaminophen 325 Mg Tablet PO 04/11/24 18:58 Q6H PRN PRN PAIN AND/OR FEVER Hydrocodone Bitart/Acetaminophen 1 tablet 03/12/24 18:59 03/13/24 02:45 Hydrocodone/Acetamin 10-325 Mg Tablet PO 03/17/24 18:58 1 tablet Q6H PRN PRN Administration PAIN Empagliflozin 10 mg 03/13/24 10:00 03/13/24 12:35 Empagliflozin 10 Mg Tablet PO 04/12/24 09:59 10 mg DAILY COLLEEN Administration Fentanyl Citrate 50 mcg 03/12/24 17:25 03/12/24 17:31 Fentanyl Citrate 100 Mcg/2 Ml* Vial IV 03/12/24 17:26 50 mcg STAT ONE Administration Fentanyl Citrate Confirm 03/12/24 17:30 Fentanyl Citrate 100 Mcg/2 Ml* Vial Administered 03/12/24 17:31 Dose 100 mcg .ROUTE .STK-MED ONE Fentanyl Citrate Confirm 03/13/24 11:23 Fentanyl Citrate 100 Mcg/2 Ml* Vial Administered 03/13/24 11:24 Dose 100 mcg .ROUTE .STK-MED ONE Gabapentin Confirm 03/12/24 23:31 Gabapentin 400 Mg Capsule Administered 03/12/24 23:32 Dose 800 mg .ROUTE .STK-MED ONE Gabapentin 800 mg 03/12/24 22:00 03/13/24 12:34 Gabapentin 400 Mg Capsule PO 04/11/24 21:59 800 mg TID COLLEEN Administration Hydrochlorothiazide 12.5 mg 03/13/24 10:00 03/13/24 12:34 Hydrochlorothiazide 25 Mg Tablet PO 04/12/24 09:59 12.5 mg DAILY COLLEEN Administration Hydromorphone HCl Confirm 03/13/24 11:23 Hydromorphone 1 Mg/1ml Inj Administered 03/13/24 11:24 Dose 1 mg .ROUTE .STK-MED ONE Piperacillin Sod/Tazobactam 100 mls @ 200 mls/hr 03/12/24 16:12 03/12/24 17:27 Sod 3.375 gm/ Sodium Chloride IV 03/12/24 16:41 200 mls/hr STAT ONE Administration Clindamycin HCl/Dextrose 600 mg in 50 mls @ 100 mls/hr 03/12/24 16:12 03/12/24 18:13 Clindamycin-D5w 600 Mg/50 Ml IV 03/12/24 16:41 100 mls/hr STAT STA Administration Sodium Chloride Confirm 03/12/24 17:26 Sodium Chloride 100ml Mini-Bag Plus Administered 03/12/24 17:27 Dose 100 mls @ ud IV .STK-MED ONE Piperacillin Sod/Tazobactam 100 mls @ 200 mls/hr 03/13/24 00:00 03/13/24 13:09 Sod 3.375 gm/ Sodium Chloride IV 03/16/24 00:00 Not Given Q6HT COLLEEN Vancomycin HCl 1 gm in 200 mls @ 125 mls/hr 03/12/24 22:00 03/12/24 23:34 Vancomycin 1 Gram/200 Ml Bag IV 04/11/24 21:59 125 mls/hr Q12H COLLEEN Administration Sodium Chloride Confirm 03/13/24 03:17 Sodium Chloride 100ml Mini-Bag Plus Administered 03/13/24 03:18 Dose 100 mls @ ud IV .STK-MED ONE Vancomycin HCl 1.25 gm in 250 mls @ 166.667 mls/hr 03/13/24 16:00 Vancomycin 1.25 Gm/250 Ml Bag IV 03/16/24 15:59 Q18H COLLEEN Lactated Ringer's 1,000 mls @ 100 mls/hr 03/13/24 10:00 03/13/24 09:48 Lactated Ringers IV 04/12/24 09:59 100 mls/hr .Q10H COLLEEN Administration Insulin Human Lispro 0 unit 03/12/24 18:31 03/12/24 23:46 Insulin Lispro 1 Unit SQ 04/11/24 18:30 4 unit UD PRN Administration HYPERGLYCEMIA Ketamine HCl Confirm 03/13/24 10:25 Ketamine Hcl 50 Mg/Ml Administered 03/13/24 10:26 Dose 50 mg .ROUTE .STK-MED ONE Lidocaine HCl Confirm 03/13/24 10:25 Lidocaine - Mpf 2% 5 Ml Vial Administered 03/13/24 10:26 Dose 5 ml .ROUTE .STK-MED ONE Lisinopril 10 mg 03/13/24 10:00 03/13/24 12:34 Lisinopril 10 Mg Tablet PO 04/12/24 09:59 10 mg DAILY COLLEEN Administration Metoprolol Tartrate 25 mg 03/12/24 22:00 03/12/24 23:35 Metoprolol Tartrate 25 Mg Tab PO 04/11/24 21:59 25 mg HS COLLEEN Administration Midazolam HCl Confirm 03/13/24 10:25 Midazolam Hcl 2 Mg/2 Ml Vial Administered 03/13/24 10:26 Dose 2 mg .ROUTE .STK-MED ONE Nicotine 21 mg 03/12/24 19:00 03/12/24 22:22 Nicotine 21 Mg/Patch Patch TOP 04/11/24 18:59 Not Given Q24H COLLEEN Non-Formulary Medication 800 mg 03/12/24 22:00 03/13/24 05:16 Gabapentin [Gabapentin] PO 04/11/24 21:59 Not Given TID COLLEEN Non-Formulary Medication 20 mg 03/12/24 22:00 03/13/24 05:16 Atorvastatin Calcium [Lipitor] PO 04/11/24 21:59 Not Given HS COLLEEN Non-Formulary Medication 1 each 03/12/24 18:57 03/12/24 22:05 Pharmacy Dose Request: Vancomycin 1 Each IV 03/12/24 18:58 1 each STAT STA Administration Ondansetron HCl 4 mg 03/12/24 17:25 03/12/24 17:31 Ondansetron Hcl 4 Mg/2 Ml Vial IV 03/12/24 17:26 4 mg STAT ONE Administration Ondansetron HCl Confirm 03/12/24 17:30 Ondansetron Hcl 4 Mg/2 Ml Vial Administered 03/12/24 17:31 Dose 4 mg .ROUTE .STK-MED ONE Ondansetron HCl 4 mg 03/12/24 19:00 Ondansetron Hcl 4 Mg/2 Ml Vial IV 04/11/24 18:59 Q6H PRN PRN NAUSEA/VOMITING Trelegy Inhaler 1 each 03/13/24 11:00 03/13/24 10:27 IH 04/12/24 10:59 1 each DAILY COLLEEN Administration Piperacillin Sod/Tazobactam Sod Confirm 03/12/24 17:25 Piperacillin/Tazobactam Sodium 3.375 Gm Vial Administered 03/12/24 17:26 Dose 3.375 gm IV .STK-MED ONE Piperacillin Sod/Tazobactam Sod Confirm 03/12/24 23:32 Piperacillin/Tazobactam Sodium 3.375 Gm Vial Administered 03/12/24 23:33 Dose 3.375 gm IV .STK-MED ONE Propofol Confirm 03/13/24 10:25 Propofol 10 Mg/Ml 20ml Vial Administered 03/13/24 10:26 Dose 200 mg IV .STK-MED ONE Simvastatin Confirm 03/12/24 23:31 Simvastatin 20 Mg Tablet Administered 03/12/24 23:32 Dose 20 mg .ROUTE .STK-MED ONE Simvastatin 20 mg 03/12/24 22:00 03/12/24 23:41 Simvastatin 20 Mg Tablet PO 04/11/24 21:59 20 mg HS COLLEEN Administration Lab/Rad Data: Laboratory Result Diagrams 03/12/24 15:48 03/12/24 15:48 Laboratory Results 03/12/24 03/12/24 03/12/24 Range/Units 16:00 15:48 15:48 WBC (4.23-9.07) x10^3/uL RBC (4.63-6.08) x10^6/uL Hgb (13.7-17.5) g/dL Hct (40.1-51.0) % MCV (79.0-92.2) fL MCH (25.7-32.2) pg MCHC (32.3-36.5) g/dL RDW (11.6-14.4) % Plt Count (163-337) x10^3/uL MPV (9.4-12.4) fL Gran % (34.0-67.9) % Immature Gran % (Auto) (0.001-0.429) % Nucleat RBC Rel Count (0.00-0.2) % Eos # (Auto) (0.04-0.54) x10^3/uL Immature Gran # (Auto) (0.001-0.031) x10^3u/L Absolute Lymphs (auto) (1.32-3.57) x10^3/uL Absolute Monos (auto) (0.30-0.82) x10^3/uL Absolute Nucleated RBC (0.00-0.012) x10^3u/L Lymphocytes % (21.8-53.1) % Monocytes % (5.3-12.2) % Eosinophils % (0.8-7.0) % Basophils % (0.2-1.2) % Absolute Granulocytes (1.78-5.38) x10^3/uL Basophils # (0.01-0.08) x10^3/uL ESR 58 H (0-15) mm/hr Sodium 135 (135-145) mmol/L Potassium 4.1 (3.5-5.1) mmol/L Chloride 99 (98-107) mmol/L Carbon Dioxide 22 (22-30) mmol/L Anion Gap 18.6 H (5-15) MEQ/L BUN 24 H (9-20) mg/dL Creatinine 0.83 (0.66-1.25) mg/dL Estimated GFR 86.8 ML/MIN Glucose 113 H (74-106) mg/dL Hemoglobin A1c 7.94 H (4.5-6.0) % Lactic Acid (0.4-2.0) Calcium 9.5 (8.4-10.2) mg/dL Total Bilirubin 1.40 H (0.2-1.3) mg/dL AST 33 (17-59) U/L ALT 29 (0-50) U/L Alkaline Phosphatase 78 (38-126) U/L Serum Total Protein 7.5 (6.3-8.2) g/dL Albumin 4.2 (3.5-5.0) g/dL 03/12/24 03/12/24 Range/Units 15:48 15:36 WBC 9.4 H (4.23-9.07) x10^3/uL RBC 5.91 (4.63-6.08) x10^6/uL Hgb 18.7 H (13.7-17.5) g/dL Hct 57.6 H (40.1-51.0) % MCV 97.5 H (79.0-92.2) fL MCH 31.6 (25.7-32.2) pg MCHC 32.5 (32.3-36.5) g/dL RDW 14.6 H (11.6-14.4) % Plt Count 239 (163-337) x10^3/uL MPV 9.4 (9.4-12.4) fL Gran % 66.7 (34.0-67.9) % Immature Gran % (Auto) 0.4 (0.001-0.429) % Nucleat RBC Rel Count 0.0 (0.00-0.2) % Eos # (Auto) 0.08 (0.04-0.54) x10^3/uL Immature Gran # (Auto) 0.04 H (0.001-0.031) x10^3u/L Absolute Lymphs (auto) 1.96 (1.32-3.57) x10^3/uL Absolute Monos (auto) 1.01 H (0.30-0.82) x10^3/uL Absolute Nucleated RBC 0.00 (0.00-0.012) x10^3u/L Lymphocytes % 20.8 L (21.8-53.1) % Monocytes % 10.7 (5.3-12.2) % Eosinophils % 0.9 (0.8-7.0) % Basophils % 0.5 (0.2-1.2) % Absolute Granulocytes 6.27 H (1.78-5.38) x10^3/uL Basophils # 0.05 (0.01-0.08) x10^3/uL ESR (0-15) mm/hr Sodium (135-145) mmol/L Potassium (3.5-5.1) mmol/L Chloride (98-107) mmol/L Carbon Dioxide (22-30) mmol/L Anion Gap (5-15) MEQ/L BUN (9-20) mg/dL Creatinine (0.66-1.25) mg/dL Estimated GFR ML/MIN Glucose (74-106) mg/dL Hemoglobin A1c (4.5-6.0) % Lactic Acid 1.9 (0.4-2.0) Calcium (8.4-10.2) mg/dL Total Bilirubin (0.2-1.3) mg/dL AST (17-59) U/L ALT (0-50) U/L Alkaline Phosphatase (38-126) U/L Serum Total Protein (6.3-8.2) g/dL Albumin (3.5-5.0) g/dL - Progress Progress: unchanged Progress Note: 03/12/24 17:45 84-year-old [id number] is evaluated in ER for left elbow swelling and p ain. Patient has history of similar swellings in the past needing surgical intervention. It got worse since last night. Subjective feeling of fever and chills as well. Workup showed normal white count, fairly unremarkable chemistries. X-rays elbow showed soft tissue swelling. No obvious fracture or dislocation. I believe this could be bursitis versus septic joint. Given a dose of Zosyn and clindamycin. Discussed with Dr. Garcia orthopedist on-call, do not think patient needs to be taken to the OR immediately but recommended continue with antibiotics, admission and n.p.o. after midnight and possibly surgical intervention by Dr. Olmos tomorrow morning. I have shared the results of workup and plan of admission with surgical intervention possibly in the morning with patient and family which they understand and agree. Discussed with Dr.: Other (Dr. Garcia orthopedic surgeon) Counseled pt/family regarding: lab results, diagnosis, need for follow-up, rad results Medical Desision Making - Discussion of managment Care discussed with:: specialist (Dr. Garcia orthopedics and Dr. Monroe) Reviewed:: Test results ( hospitalist) Agreed on:: Treatment plan, place in obs Will see patient: in hospital - Diagnostic Testing Diagnostic test were ordered, analyzed, and reviewed by me: Yes Radiological Interpretation: Reviewed by me - Risk of complications The pt has a mod risk of morbidity or mortality based on: Need for prescription drug management, Need for minor surgical intervention in patient with know risk factors The pt has a high risk of morbidity or mortality based on: Decision regarding hospitilization or escalation of hosp level of care - Departure Departure Disposition: Home Clinical Impression: Cellulitis of left elbow, Abscess of left elbow Condition: Stable Critical Care Time: No
[2024-03-12] MEDS ORDERED: PIPERACILLIN/TAZOBACTAM IV ONE ×2 (17:25→23:32)
[2024-03-12] MEDS ORDERED: Sodium Chloride 100ML MINI-BAG PLUS 100 ML IV ONE (17:26)
[2024-03-12] MEDS: PIPERACILLIN/TAZOBACTAM 3.375 GM in Sodium Chloride 100ML MINI-BAG PLUS 100 ML IV ONE (17:27)
[2024-03-12] MEDS ORDERED: Zofran 4 MG/2 ML VIAL ONE (17:30)
[2024-03-12] MEDS ORDERED: SUBLIMAZE 100 MCG/2 ML ONE (17:30)
[2024-03-12] MEDS: Zofran 4 MG/2 ML VIAL IV ONE (17:31)
[2024-03-12] MEDS: SUBLIMAZE 100 MCG/2 ML IV ONE (17:31)
[2024-03-12] MEDS: CLINDAMYCIN-D5W 600 MG/50 ML*** 600 MG/50 ML BAG IV STA (18:13)
--- NOTE | 2024-03-12 18:21 | PCM.HP ---
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 Pt presented to the ER with 4 to 5 days history of increasing pain and swelling left elbow which got remarkably swollen and painful x4 days. Subjective feeling of fever and chills. Difficulty movements of the left elbow. No numbness or tingling/weakness distally. Denies any fall or trauma. Reports having similar kind of swelling in the past needing surgical intervention 3-4 other times.Pt is up-to-date with tetanus. He is [id number]. Surgery consulted and pt is to be NPO after midnight and antibiotics started. Pt denies any further concerns at this time. - Review of Systems Constitutional: No Fever, No Chills Eyes: No Symptoms Ears, Nose, & Throat: No Symptoms Respiratory: No Cough, No Short Of Breath Cardiac: No Chest Pain, No Edema, No Syncope Abdominal/Gastrointestinal: No Abdominal Pain, No Nausea, No Vomiting, No Diarrhea Genitourinary Symptoms: No Dysuria Musculoskeletal: Joint Pain, Joint Swelling (left elbow), No Back Pain, No Neck Pain Skin: No Rash Neurological: No Dizziness, No Focal Weakness, No Sensory Changes Psychological: No Symptoms Endocrine: No Symptoms Hematologic/Lymphatic: No Symptoms Immunological/Allergic: No Symptoms Medications & Allergies Home Medications: Home Medication List Aspirin 81 mg PO HS 02/23/15 [History Confirmed 03/12/24] Celecoxib 100 mg [celeBREX 100 MG] 200 mg PO DAILY 02/23/15 [History Confirmed 03/12/24] Enalapril Maleate 10 mg [Vasotec 10 MG] 10 mg PO DAILY 02/23/15 [History Confirmed 03/12/24] hydroCHLOROthiazide [Hydrochlorothiazide] 12.5 mg PO DAILY 02/23/15 [History Confirmed 03/12/24] Gabapentin 800 mg PO TID 02/05/17 [History Confirmed 03/12/24] Hydrocodone/Acetaminophen [[place] 7.5-325 Tablet] 1 each PO Q6H PRN #0 tablet 02/21/17 [Rx Confirmed 03/12/24] Atorvastatin Calcium [Lipitor] 20 mg PO HS 05/23/20 [History Confirmed 03/12/24] Clopidogrel Bisulfate [PLAVIX 75 MG Tablet] 75 mg PO HS 05/23/20 [History C onfirmed 03/12/24] Metoprolol Tartrate 25 mg [Lopressor 25MG Tab] 25 mg PO HS 05/23/20 [History Confirmed 03/12/24] Empagliflozin [Jardiance] 10 mg PO DAILY 03/12/24 [History Confirmed 03/12/24] Fluticasone/Umeclidin/Vilanter [Trelegy Ellipta 100-62.5-25] 1 puff IH DAILY 03/12/24 [History Confirmed 03/12/24] Allergies/Adverse Reactions: Allergies Allergy/AdvReac Type Severity Reaction Status Date / Time morphine AdvReac Verified 03/12/24 18:22 - Past Medical History Past Medical History: Yes Neurological History: No Pertinent History ENT History: No Pertinent History Cardiac History: Coronary Artery Disease, High Cholesterol, Hypertension, Myocardial Infarction ([place]), Other Respiratory History: Bronchitis, COPD, Emphysema Endocrine Medical History: Diabetes Type II Musculoskelatal History: Osteoarthritis GI Medical History: Diverticulitis History: Other Pyscho-Social History: No Pertinent History Male Reproductive Disorders: No Pertinent History Comment: PT. HAS THREE CARDIAC STENTS. SEE LIST IN START. RECENT KIDNEY STONE R EMOVED. horseshoe kidney. polycythemia secondary to smoking - Past Surgical History Past Surgical History: Yes Neuro Surgical History: No Pertinent History Cardiac History: Cardiac Catheterization, Cardiac Stent Respiratory Surgery: No Pertinent History GI Surgical History: Colon Resection Genitourinary Surgical Hx: Kidney Surgery Musculskeletal Surgical Hx: Orthopedic Surgery Male Surgical History: No Pertinent History Other Surgical History: Right HIP REPLACEMENT,BACK SURGERIES KIDNEY STONES REMOVED. cyst removed from colon - Social History Smoking Status: Current every day smoker How long have you smoked: 60 Exposure to second hand smoke: No Alcohol: None Drug Use: none - Social Determinants of Health Will the patient participate in the screening: Yes Do you worry about a steady place to live?: No Do you have any problems with any of the following?: No known problems In the past 12 months,have you had to go without utilities?: No Have you or anyone in your house had to go without enough: No Transportation Issues: No Has anyone in your support network made you feel unsafe?: No - Physical Exam Vital Signs: Vital Signs - 24 hr Temp Pulse Resp BP Pulse Ox 03/12/24 17:44 95 03/12/24 17:39 113/74 92 L 03/12/24 17:38 90 L 03/12/24 17:36 94 L 03/12/24 16:30 117/76 03/12/24 16:00 120/72 94 L 03/12/24 15:30 105 H 19 118/80 95 03/12/24 15:03 98 F 105 H 18 155/82 95 General Appearance: no apparent distress, alert Neurologic Exam: alert, oriented x 3, cooperative, normal mood/affect, nml cerebellar function, nml station & gait, sensation nml, No motor deficits Eye Exam: PERRL/EOMI, eyes nml inspection Ears, Nose, Throat Exam: normal ENT inspection, TMs normal, pharynx normal, moist mucous membranes Neck Exam: normal inspection, non-tender, supple, full range of motion Respiratory Exam: normal breath sounds, lungs clear, No respiratory distress Cardiovascular Exam: regular rate/rhythm, normal heart sounds, normal peripheral pulses Gastrointestinal/Abdomen Exam: soft, normal bowel sounds, No tenderness, No mass Back Exam: normal inspection, normal range of motion, No CVA tenderness, No vertebral tenderness Extremity Exam: normal inspection, normal range of motion, pelvis stable, joint swelling, swelling, tenderness (left elbow) Skin Exam: normal color, warm, dry, No rash Lymphatic Exam: No adenopathy Results - Labs Lab/Micro Results: Lab Results-Last 24 Hours 03/12/24 03/12/24 03/12/24 Range/Units 15:36 15:48 15:48 WBC 9.4 H (4.23-9.07) x10^3/uL RBC 5.91 (4.63-6.08) x10^6/uL Hgb 18.7 H (13.7-17.5) g/dL Hct 57.6 H (40.1-51.0) % MCV 97.5 H (79.0-92.2) fL MCH 31.6 (25.7-32.2) pg MCHC 32.5 (32.3-36.5) g/dL RDW 14.6 H (11.6-14.4) % Plt Count 239 (163-337) x10^3/uL MPV 9.4 (9.4-12.4) fL Gran % 66.7 (34.0-67.9) % Immature Gran % (Auto) 0.4 (0.001-0.429) % Nucleat RBC Rel Count 0.0 (0.00-0.2) % Eos # (Auto) 0.08 (0.04-0.54) x10^3/uL Immature Gran # (Auto) 0.04 H (0.001-0.031) x10^3u/L Absolute Lymphs (auto) 1.96 (1.32-3.57) x10^3/uL Absolute Monos (auto) 1.01 H (0.30-0.82) x10^3/uL Absolute Nucleated RBC 0.00 (0.00-0.012) x10^3u/L Lymphocytes % 20.8 L (21.8-53.1) % Monocytes % 10.7 (5.3-12.2) % Eosinophils % 0.9 (0.8-7.0) % Basophils % 0.5 (0.2-1.2) % Absolute Granulocytes 6.27 H (1.78-5.38) x10^3/uL Basophils # 0.05 (0.01-0.08) x10^3/uL ESR (0-15) mm/hr Sodium 135 (135-145) mmol/L Potassium 4.1 (3.5-5.1) mmol/L Chloride 99 (98-107) mmol/L Carbon Dioxide 22 (22-30) mmol/L Anion Gap 18.6 H (5-15) MEQ/L BUN 24 H (9-20) mg/dL Creatinine 0.83 (0.66-1.25) mg/dL Estimated GFR 86.8 ML/MIN Glucose 113 H (74-106) mg/dL Lactic Acid 1.9 (0.4-2.0) Calcium 9.5 (8.4-10.2) mg/dL Total Bilirubin 1.40 H (0.2-1.3) mg/dL AST 33 (17-59) U/L ALT 29 (0-50) U/L Alkaline Phosphatase 78 (38-126) U/L Serum Total Protein 7.5 (6.3-8.2) g/dL Albumin 4.2 (3.5-5.0) g/dL 03/12/ Range/Units 15:48 WBC (4.23-9.07) x10^3/uL RBC (4.63-6.08) x10^6/uL Hgb (13.7-17.5) g/dL Hct (40.1-51.0) % MCV (79.0-92.2) fL MCH (25.7-32.2) pg MCHC (32.3-36.5) g/dL RDW (11.6-14.4) % Plt Count (163-337) x10^3/uL MPV (9.4-12.4) fL Gran % (34.0-67.9) % Immature Gran % (Auto) (0.001-0.429) % Nucleat RBC Rel Count (0.00-0.2) % Eos # (Auto) (0.04-0.54) x10^3/uL Immature Gran # (Auto) (0.001-0.031) x10^3u/L Absolute Lymphs (auto) (1.32-3.57) x10^3/uL Absolute Monos (auto) (0.30-0.82) x10^3/uL Absolute Nucleated RBC (0.00-0.012) x10^3u/L Lymphocytes % (21.8-53.1) % Monocytes % (5.3-12.2) % Eosinophils % (0.8-7.0) % Basophils % (0.2-1.2) % Absolute Granulocytes (1.78-5.38) x10^3/uL Basophils # (0.01-0.08) x10^3/uL ESR 58 H (0-15) mm/hr Sodium (135-145) mmol/L Potassium (3.5-5.1) mmol/L Chloride (98-107) mmol/L Carbon Dioxide (22-30) mmol/L Anion Gap (5-15) MEQ/L BUN (9-20) mg/dL Creatinine (0.66-1.25) mg/dL Estimated GFR ML/MIN Glucose (74-106) mg/dL Lactic Acid (0.4-2.0) Calcium (8.4-10.2) mg/dL Total Bilirubin (0.2-1.3) mg/dL AST (17-59) U/L ALT (0-50) U/L Alkaline Phosphatase (38-126) U/L Serum Total Protein (6.3-8.2) g/dL Albumin (3.5-5.0) g/dL - Radiology Impressions Radiology Exams & Impressions: Radiology Procedures Category Date Time Status ELBOW (MINIMUM 3 VIEWS) Stat Exams 03/12/24 15:37 Completed Assessment/Plan (1) Bursitis Current Visit: Yes Status: Acute Assessment & Plan: - ortho consulted - pt is to be NPO after midnight and IV antibiotics per ortho. - Elevate extremity - BC x2 pending - Zosyn gave in ER and clindamycin IV started - [place] for pain increased from usual dosing. - tylenol for fever - Hold ASA, Celebrex, Plavix Code(s): M71.9 - BURSOPATHY, UNSPECIFIED (2) Cellulitis of left elbow Current Visit: Yes Status: Acute Assessment & Plan: - WBC 9.4- trend - see plan above Code(s): L03.114 - CELLULITIS OF LEFT UPPER LIMB (3) Diabetes Current Visit: Yes Status: Acute Assessment & Plan: - oral controlled OP - accuchecks ac/hs, Humalog s/s if needed. - A1C pending Code(s): E11.9 - TYPE 2 DIABETES MELLITUS WITHOUT COMPLICATIONS Telemedicine Encounter - Telemedicine Encounter Telemedicine Encounter: "The entirety of this encounter was performed via Telemedicine" This visit was performed using real-time audio and video connection between my location and thepatients locationwith the assistance of a surrogateat the patients location. Written or verbal consent was obtained from the patient/guardian to perform this visit using[facility] technology. Any patient questions regarding the telemedicine interaction were answered.
[2024-03-12] MEDS ORDERED: TYLENOL 325 MG PO PRN (18:59)
[2024-03-12] MEDS ORDERED: Zofran 4 MG/2 ML VIAL IV PRN (19:00)
[2024-03-12] MEDS: NORCO 10-325 MG PO PRN (19:26)
[2024-03-12] MEDS: PHARMACY DOSING REQUIRED: VANCOMYCIN IV STA (22:05)
[2024-03-12] MEDS: Nicoderm CQ 21 MG TOP SCH (22:22)
[2024-03-12] MEDS ORDERED: ZOCOR 20MG ONE (23:31)
[2024-03-12] MEDS ORDERED: Neurontin ONE (23:31)
[2024-03-12] MEDS: VANCOMYCIN 1 GRAM/200 ML BAG 1 GM/200 ML PIGGYBACK IV SCH (23:34)
[2024-03-12] MEDS: Lopressor 25MG Tab PO SCH (23:35)
[2024-03-12] MEDS: ZOCOR 20MG PO SCH (23:41)
[2024-03-12] MEDS: Neurontin PO SCH (23:41)
[2024-03-12] MEDS: HUMALOG SQ PRN (23:46)
[2024-03-13] MEDS: PIPERACILLIN/TAZOBACTAM 3.375 GM in Sodium Chloride 100ML MINI-BAG PLUS 100 ML IV SCH (02:20)
[2024-03-13 03:10] LABS: Hematocrit 50.5 % (40.1-51.0); Hemoglobin 16.4 g/dL (13.7-17.5); Mean Cell Volume 96.9 fL (79.0-92.2); Mean Corpuscular Hemoglobin 31.5 pg (25.7-32.2); Mean Corpuscular Hgb Concent. 32.5 g/dL (32.3-36.5); Mean Platelet Volume 9.4 fL (9.4-12.4); Platelet Count 228 x10^3/uL (163-337); Red Blood Count 5.21 x10^6/uL (4.63-6.08); Red Cell Distribution Width 14.6 % (11.6-14.4); White Blood Count 8.4 x10^3/uL (4.23-9.07)
[2024-03-13 03:16] LABS: ALBUMIN 3.6 g/dL (3.5-5.0); ANION GAP 11.8 MEQ/L (5-15); BILIRUBIN,TOTAL 0.9 mg/dL (0.2-1.3); Calcium 8.6 mg/dL (8.4-10.2); Creatinine 1 0.92 mg/dL (0.66-1.25); EST GLOMERULAR FILTRATION RATE 82.5 ML/MIN; Potassium 3.8 mmol/L (3.5-5.1); Total Protein 6.7 g/dL (6.3-8.2)
[2024-03-13] MEDS ORDERED: Sodium Chloride 100ML MINI-BAG PLUS 0 ML IV ONE (03:17)
[2024-03-13] MEDS: NON-FORMULARY ITEM (Gabapentin [Gabapentin] 600 MG Tablet) PO SCH (05:16)
[2024-03-13] MEDS: NON-FORMULARY ITEM (Atorvastatin Calcium [Lipitor] 20 MG Tablet) PO SCH (05:16)
[2024-03-13] MEDS ORDERED: MEDICATION INTERVENTION MC SCH (07:15)
[2024-03-13 08:01] VITALS: TEMP 96.9
[2024-03-13] MEDS: Lactated Ringers 1,000 ML IV SCH (09:48)
[2024-03-13] MEDS ORDERED: ENALAPRIL MALEATE 10 MG PO SCH (10:00)
[2024-03-13] MEDS ORDERED: NON-FORMULARY ITEM (Fluticasone/Umeclidin/Vilanter [Trelegy Ellipta 100-62.5-25] 1 EACH Bl IH SCH (10:00)
[2024-03-13] MEDS ORDERED: Versed 2 MG/2 ML Injection ONE (10:25)
[2024-03-13] MEDS ORDERED: Ketamine HCl 50 MG/ML ONE (10:25)
[2024-03-13] MEDS ORDERED: DIPRIVAN 200 MG/20 ML IV ONE (10:25)
[2024-03-13] MEDS ORDERED: Xylocaine-Mpf 2% 5 Ml Vial ONE (10:25)
[2024-03-13] MEDS: PATIENT OWN MEDICATION IH SCH (10:27)
[2024-03-13] MEDS ORDERED: Hydromorphone 1 mg/ml Injection ONE (11:23)
[2024-03-13] MEDS ORDERED: SUBLIMAZE 100 MCG/2 ML ONE (11:23)
--- NOTE | 2024-03-13 11:46 | PCM.NOTE ---
Date and Time: 03/13/24 1130 Objective Data Vital Signs: Vital Signs - 24 hr Temp Pulse Resp BP BP Pulse Ox 03/13/24 09:40 70 16 94 L 03/13/24 09:32 96.9 F 71 16 110/59 94 L 03/13/24 08:00 96.9 F 71 16 110/59 94 L 03/13/24 04:00 97.0 F 76 18 116/59 95 03/13/24 00:00 96.8 F 97 H 20 104/60 94 L 03/12/24 20:00 98.0 F 113 H 18 117/66 94 L 03/12/24 17:44 95 03/12/24 17:39 113/74 92 L 03/12/24 17:38 90 L 03/12/24 17:36 94 L 03/12/24 16:30 117/76 03/12/24 16:00 120/72 94 L 03/12/24 15:30 105 H 19 118/80 95 03/12/24 15:03 98 F 105 H 18 155/82 95 Pain Assessment - Last Documented Pain Intensity 8 Pain Scale Used 0-10 Pain Scale Intake and Output: Intake & Output 03/10/24 03/11/24 03/12/24 03/13/24 11:59 11:59 11:59 11:59 Intake Total 973 Output Total 250 Balance 723 Weight 83.3 kg Lab Results: Lab Results-Last 24 Hours 03/12/24 03/12/24 03/12/24 Range/Units 15:36 15:48 15:48 WBC 9.4 H (4.23-9.07) x10^3/uL RBC 5.91 (4.63-6.08) x10^6/uL Hgb 18.7 H (13.7-17.5) g/dL Hct 57.6 H (40.1-51.0) % MCV 97.5 H (79.0-92.2) fL MCH 31.6 (25.7-32.2) pg MCHC 32.5 (32.3-36.5) g/dL RDW 14.6 H (11.6-14.4) % Plt Count 239 (163-337) x10^3/uL MPV 9.4 (9.4-12.4) fL Gran % 66.7 (34.0-67.9) % Immature Gran % (Auto) 0.4 (0.001-0.429) % Nucleat RBC Rel Count 0.0 (0.00-0.2) % Eos # (Auto) 0.08 (0.04-0.54) x10^3/uL Immature Gran # (Auto) 0.04 H (0.001-0.031) x10^3u/L Absolute Lymphs (auto) 1.96 (1.32-3.57) x10^3/uL Absolute Monos (auto) 1.01 H (0.30-0.82) x10^3/uL Absolute Nucleated RBC 0.00 (0.00-0.012) x10^3u/L Lymphocytes % 20.8 L (21.8-53.1) % Monocytes % 10.7 (5.3-12.2) % Eosinophils % 0.9 (0.8-7.0) % Basophils % 0.5 (0.2-1.2) % Absolute Granulocytes 6.27 H (1.78-5.38) x10^3/uL Basophils # 0.05 (0.01-0.08) x10^3/uL ESR (0-15) mm/hr Sodium 135 (135-145) mmol/L Potassium 4.1 (3.5-5.1) mmol/L Chloride 99 (98-107) mmol/L Carbon Dioxide 22 (22-30) mmol/L Anion Gap 18.6 H (5-15) MEQ/L BUN 24 H (9-20) mg/dL Creatinine 0.83 (0.66-1.25) mg/dL Estimated GFR 86.8 ML/MIN Glucose 113 H (74-106) mg/dL POC Glucometer (74 to 106) mg/dL Hemoglobin A1c (4.5-6.0) % Lactic Acid 1.9 (0.4-2.0) Calcium 9.5 (8.4-10.2) mg/dL Total Bilirubin 1.40 H (0.2-1.3) mg/dL AST 33 (17-59) U/L ALT 29 (0-50) U/L Alkaline Phosphatase 78 (38-126) U/L Serum Total Protein 7.5 (6.3-8.2) g/dL Albumin 4.2 (3.5-5.0) g/dL 03/12/24 03/12/24 03/12/24 Range/Units 15:48 16:00 18:07 WBC (4.23-9.07) x10^3/uL RBC (4.63-6.08) x10^6/uL Hgb (13.7-17.5) g/dL Hct (40.1-51.0) % MCV (79.0-92.2) fL MCH (25.7-32.2) pg MCHC (32.3-36.5) g/dL RDW (11.6-14.4) % Plt Count (163-337) x10^3/uL MPV (9.4-12.4) fL Gran % (34.0-67.9) % Immature Gran % (Auto) (0.001-0.429) % Nucleat RBC Rel Count (0.00-0.2) % Eos # (Auto) (0.04-0.54) x10^3/uL Immature Gran # (Auto) (0.001-0.031) x10^3u/L Absolute Lymphs (auto) (1.32-3.57) x10^3/uL Absolute Monos (auto) (0.30-0.82) x10^3/uL Absolute Nucleated RBC (0.00-0.012) x10^3u/L Lymphocytes % (21.8-53.1) % Monocytes % (5.3-12.2) % Eosinophils % (0.8-7.0) % Basophils % (0.2-1.2) % Absolute Granulocytes (1.78-5.38) x10^3/uL Basophils # (0.01-0.08) x10^3/uL ESR 58 H (0-15) mm/hr Sodium (135-145) mmol/L Potassium (3.5-5.1) mmol/L Chloride (98-107) mmol/L Carbon Dioxide (22-30) mmol/L Anion Gap (5-15) MEQ/L BUN (9-20) mg/dL Creatinine (0.66-1.25) mg/dL Estimated GFR ML/MIN Glucose (74-106) mg/dL POC Glucometer (74 to 106) mg/dL Hemoglobin A1c 7.94 H (4.5-6.0) % Lactic Acid 3.0 H (0.4-2.0) Calcium (8.4-10.2) mg/dL Total Bilirubin (0.2-1.3) mg/dL AST (17-59) U/L ALT (0-50) U/L Alkaline Phosphatase (38-126) U/L Serum Total Protein (6.3-8.2) g/dL Albumin (3.5-5.0) g/dL 03/12/24 03/13/24 03/13/24 Range/Units 22:03 02:30 02:30 WBC 8.4 (4.23-9.07) x10^3/uL RBC 5.21 (4.63-6.08) x10^6/uL Hgb 16.4 (13.7-17.5) g/dL Hct 50.5 (40.1-51.0) % MCV 96.9 H (79.0-92.2) fL MCH 31.5 (25.7-32.2) pg MCHC 32.5 (32.3-36.5) g/dL RDW 14.6 H (11.6-14.4) % Plt Count 228 (163-337) x10^3/uL MPV 9.4 (9.4-12.4) fL Gran % (34.0-67.9) % Immature Gran % (Auto) (0.001-0.429) % Nucleat RBC Rel Count (0.00-0.2) % Eos # (Auto) (0.04-0.54) x10^3/uL Immature Gran # (Auto) (0.001-0.031) x10^3u/L Absolute Lymphs (auto) (1.32-3.57) x10^3/uL Absolute Monos (auto) (0.30-0.82) x10^3/uL Absolute Nucleated RBC (0.00-0.012) x10^3u/L Lymphocytes % (21.8-53.1) % Monocytes % (5.3-12.2) % Eosinophils % (0.8-7.0) % Basophils % (0.2-1.2) % Absolute Granulocytes (1.78-5.38) x10^3/uL Basophils # (0.01-0.08) x10^3/uL ESR (0-15) mm/hr Sodium 136 (135-145) mmol/L Potassium 3.8 (3.5-5.1) mmol/L Chloride 101 (98-107) mmol/L Carbon Dioxide 27 (22-30) mmol/L Anion Gap 11.8 (5-15) MEQ/L BUN 32 H (9-20) mg/dL Creatinine 0.92 (0.66-1.25) mg/dL Estimated GFR 82.5 ML/MIN Glucose 149 H (74-106) mg/dL POC Glucometer 251 H (74 to 106) mg/dL Hemoglobin A1c (4.5-6.0) % Lactic Acid (0.4-2.0) Calcium 8.6 (8.4-10.2) mg/dL Total Bilirubin 0.90 (0.2-1.3) mg/dL AST 23 (17-59) U/L ALT 23 (0-50) U/L Alkaline Phosphatase 61 (38-126) U/L Serum Total Protein 6.7 (6.3-8.2) g/dL Albumin 3.6 (3.5-5.0) g/dL 03/13/24 Range/Units 07:46 WBC (4.23-9.07) x10^3/uL RBC (4.63-6.08) x10^6/uL Hgb (13.7-17.5) g/dL Hct (40.1-51.0) % MCV (79.0-92.2) fL MCH (25.7-32.2) pg MCHC (32.3-36.5) g/dL RDW (11.6-14.4) % Plt Count (163-337) x10^3/uL MPV (9.4-12.4) fL Gran % (34.0-67.9) % Immature Gran % (Auto) (0.001-0.429) % Nucleat RBC Rel Count (0.00-0.2) % Eos # (Auto) (0.04-0.54) x10^3/uL Immature Gran # (Auto) (0.001-0.031) x10^3u/L Absolute Lymphs (auto) (1.32-3.57) x10^3/uL Absolute Monos (auto) (0.30-0.82) x10^3/uL Absolute Nucleated RBC (0.00-0.012) x10^3u/L Lymphocytes % (21.8-53.1) % Monocytes % (5.3-12.2) % Eosinophils % (0.8-7.0) % Basophils % (0.2-1.2) % Absolute Granulocytes (1.78-5.38) x10^3/uL Basophils # (0.01-0.08) x10^3/uL ESR (0-15) mm/hr Sodium (135-145) mmol/L Potassium (3.5-5.1) mmol/L Chloride (98-107) mmol/L Carbon Dioxide (22-30) mmol/L Anion Gap (5-15) MEQ/L BUN (9-20) mg/dL Creatinine (0.66-1.25) mg/dL Estimated GFR ML/MIN Glucose (74-106) mg/dL POC Glucometer 147 H (74 to 106) mg/dL Hemoglobin A1c (4.5-6.0) % Lactic Acid (0.4-2.0) Calcium (8.4-10.2) mg/dL Total Bilirubin (0.2-1.3) mg/dL AST (17-59) U/L ALT (0-50) U/L Alkaline Phosphatase (38-126) U/L Serum Total Protein (6.3-8.2) g/dL Albumin (3.5-5.0) g/dL Radiology Exams: Radiology Procedures Category Date Time Status ELBOW (MINIMUM 3 VIEWS) Stat Exams 03/12/24 15:37 Completed Assessment/Plan (1) Bursitis Current Visit: Yes Status: Acute Code(s): M71.9 - BURSOPATHY, UNSPECIFIED (2) Cellulitis of left elbow Current Visit: Yes Status: Acute Code(s): L03.114 - CELLULITIS OF LEFT UPPER LIMB (3) Diabetes Current Visit: Yes Status: Acute Code(s): E11.9 - TYPE 2 DIABETES MELLITUS WITHOUT COMPLICATIONS
--- NOTE | 2024-03-13 11:53 | PCM.DS ---
Discharge Summary Date of Admission: 03/12/24 18:01 Date of Discharge: 03/13/24 Admitting Physician: JOSE BRISCOE MD Consults: Consults on Case 03/12/24 18:58 Consult Ortho ROUTINE Primary Care Provider: BRENDA,RITO Allergies Allergies morphine Adverse Reaction (Verified 03/12/24 18:22) PT STATES "IN LARGE DOSES I GET MOUTHY AND MEAN" STATES GETS CONFUSED Hospital Summary - Hospital Course Hospital Course: 03/12/24 is a 84 year old male with PMHX of Oral controlled type II DM, CAD, hyperlipidemia, [place], HTN,COPD, emphysema, OA, Diverticulitis, Cardiac stents, Kidney stones, [place] kidney, polycythemia, and daily smoker. Pt presented to the ER with 4 to 5 days history of increasing pain and swelling left elbow which got remarkably swollen and painful x4 days. Subjective feeling of fever and chills. Difficulty movements of the left elbow. No numbness or tingling/weakness distally. Denies any fall or trauma. Reports having similar kind of swelling in the past needing surgical intervention 3-4 other times.Pt is up-to-date with tetanus. He is [id number]. Surgery consulted and pt is to be NPO after midnight and antibiotics started. Pt denies any further concerns at this time. 03/13/24 Pt resting in bed. He explains his left elbow drained significantly last night. He had an I&D with ortho this AM. Provena wound vac placed. Pt is to f/u with Ortho Weds in office. Wound vac to be on for 7 days. Ortho Ok with d/c today with oral antibiotics. Will follow wound culture. He denies any further concerns at this time. Pt states in the near future he will be moving across country with his son and . - Vitals & Intake/Output Vital Signs: Vital Signs Temperature 96.9 F 03/13/24 09:32 Pulse Rate 70 03/13/24 09:40 Respiratory Rate 03/13/24 09:40 Blood Pressure 110/59 03/13/24 09:32 O2 Sat by Pulse Oximetry 94 L 03/13/24 09:40 Intake & Output: Intake & Output 03/10/24 03/11/24 03/12/24 03/13/24 11:59 11:59 11:59 11:59 Intake Total 973 Output Total 250 Balance 723 Weight 83.3 kg - Lab Result Diagrams: 03/13/24 02:30 03/13/24 02:30 Lab Results-Last 24 Hrs: Lab Results-Last 24 Hours 03/12/24 03/12/24 03/12/24 Range/Units 15:36 15:48 15:48 WBC 9.4 H (4.23-9.07) x10^3/uL RBC 5.91 (4.63-6.08) x10^6/uL Hgb 18.7 H (13.7-17.5) g/dL Hct 57.6 H (40.1-51.0) % MCV 97.5 H (79.0-92.2) fL MCH 31.6 (25.7-32.2) pg MCHC 32.5 (32.3-36.5) g/dL RDW 14.6 H (11.6-14.4) % Plt Count 239 (163-337) x10^3/uL MPV 9.4 (9.4-12.4) fL Gran % 66.7 (34.0-67.9) % Immature Gran % (Auto) 0.4 (0.001-0.429) % Nucleat RBC Rel Count 0.0 (0.00-0.2) % Eos # (Auto) 0.08 (0.04-0.54) x10^3/uL Immature Gran # (Auto) 0.04 H (0.001-0.031) x10^3u/L Absolute Lymphs (auto) 1.96 (1.32-3.57) x10^3/uL Absolute Monos (auto) 1.01 H (0.30-0.82) x10^3/uL Absolute Nucleated RBC 0.00 (0.00-0.012) x10^3u/L Lymphocytes % 20.8 L (21.8-53.1) % Monocytes % 10.7 (5.3-12.2) % Eosinophils % 0.9 (0.8-7.0) % Basophils % 0.5 (0.2-1.2) % Absolute Granulocytes 6.27 H (1.78-5.38) x10^3/uL Basophils # 0.05 (0.01-0.08) x10^3/uL ESR (0-15) mm/hr Sodium 135 (135-145) mmol/L Potassium 4.1 (3.5-5.1) mmol/L Chloride 99 (98-107) mmol/L Carbon Dioxide 22 (22-30) mmol/L Anion Gap 18.6 H (5-15) MEQ/L BUN 24 H (9-20) mg/dL Creatinine 0.83 (0.66-1.25) mg/dL Estimated GFR 86.8 ML/MIN Glucose 113 H (74-106) mg/dL POC Glucometer (74 to 106) mg/dL Hemoglobin A1c (4.5-6.0) % Lactic Acid 1.9 (0.4-2.0) Calcium 9.5 (8.4-10.2) mg/dL Total Bilirubin 1.40 H (0.2-1.3) mg/dL AST 33 (17-59) U/L ALT 29 (0-50) U/L Alkaline Phosphatase 78 (38-126) U/L Serum Total Protein 7.5 (6.3-8.2) g/dL Albumin 4.2 (3.5-5.0) g/dL 03/12/24 03/12/24 03/12/24 Range/Units 15:48 16:00 18:07 WBC (4.23-9.07) x10^3/uL RBC (4.63-6.08) x10^6/uL Hgb (13.7-17.5) g/dL Hct (40.1-51.0) % MCV (79.0-92.2) fL MCH (25.7-32.2) pg MCHC (32.3-36.5) g/dL RDW (11.6-14.4) % Plt Count (163-337) x10^3/uL MPV (9.4-12.4) fL Gran % (34.0-67.9) % Immature Gran % (Auto) (0.001-0.429) % Nucleat RBC Rel Count (0.00-0.2) % Eos # (Auto) (0.04-0.54) x10^3/uL Immature Gran # (Auto) (0.001-0.031) x10^3u/L Absolute Lymphs (auto) (1.32-3.57) x10^3/uL Absolute Monos (auto) (0.30-0.82) x10^3/uL Absolute Nucleated RBC (0.00-0.012) x10^3u/L Lymphocytes % (21.8-53.1) % Monocytes % (5.3-12.2) % Eosinophils % (0.8-7.0) % Basophils % (0.2-1.2) % Absolute Granulocytes (1.78-5.38) x10^3/uL Basophils # (0.01-0.08) x10^3/uL ESR 58 H (0-15) mm/hr Sodium (135-145) mmol/L Potassium (3.5-5.1) mmol/L Chloride (98-107) mmol/L Carbon Dioxide (22-30) mmol/L Anion Gap (5-15) MEQ/L BUN (9-20) mg/dL Creatinine (0.66-1.25) mg/dL Estimated GFR ML/MIN Glucose (74-106) mg/dL POC Glucometer (74 to 106) mg/dL Hemoglobin A1c 7.94 H (4.5-6.0) % Lactic Acid 3.0 H (0.4-2.0) Calcium (8.4-10.2) mg/dL Total Bilirubin (0.2-1.3) mg/dL AST (17-59) U/L ALT (0-50) U/L Alkaline Phosphatase (38-126) U/L Serum Total Protein (6.3-8.2) g/dL Albumin (3.5-5.0) g/dL 03/12/24 03/13/24 03/13/24 Range/Units 22:03 02:30 02:30 WBC 8.4 (4.23-9.07) x10^3/uL RBC 5.21 (4.63-6.08) x10^6/uL Hgb 16.4 (13.7-17.5) g/dL Hct 50.5 (40.1-51.0) % MCV 96.9 H (79.0-92.2) fL MCH 31.5 (25.7-32.2) pg MCHC 32.5 (32.3-36.5) g/dL RDW 14.6 H (11.6-14.4) % Plt Count 228 (163-337) x10^3/uL MPV 9.4 (9.4-12.4) fL Gran % (34.0-67.9) % Immature Gran % (Auto) (0.001-0.429) % Nucleat RBC Rel Count (0.00-0.2) % Eos # (Auto) (0.04-0.54) x10^3/uL Immature Gran # (Auto) (0.001-0.031) x10^3u/L Absolute Lymphs (auto) (1.32-3.57) x10^3/uL Absolute Monos (auto) (0.30-0.82) x10^3/uL Absolute Nucleated RBC (0.00-0.012) x10^3u/L Lymphocytes % (21.8-53.1) % Monocytes % (5.3-12.2) % Eosinophils % (0.8-7.0) % Basophils % (0.2-1.2) % Absolute Granulocytes (1.78-5.38) x10^3/uL Basophils # (0.01-0.08) x10^3/uL ESR (0-15) mm/hr Sodium 136 (135-145) mmol/L Potassium 3.8 (3.5-5.1) mmol/L Chloride 101 (98-107) mmol/L Carbon Dioxide 27 (22-30) mmol/L Anion Gap 11.8 (5-15) MEQ/L BUN 32 H (9-20) mg/dL Creatinine 0.92 (0.66-1.25) mg/dL Estimated GFR 82.5 ML/MIN Glucose 149 H (74-106) mg/dL POC Glucometer 251 H (74 to 106) mg/dL Hemoglobin A1c (4.5-6.0) % Lactic Acid (0.4-2.0) Calcium 8.6 (8.4-10.2) mg/dL Total Bilirubin 0.90 (0.2-1.3) mg/dL AST 23 (17-59) U/L ALT 23 (0-50) U/L Alkaline Phosphatase 61 (38-126) U/L Serum Total Protein 6.7 (6.3-8.2) g/dL Albumin 3.6 (3.5-5.0) g/dL 03/13/24 Range/Units 07:46 WBC (4.23-9.07) x10^3/uL RBC (4.63-6.08) x10^6/uL Hgb (13.7-17.5) g/dL Hct (40.1-51.0) % MCV (79.0-92.2) fL MCH (25.7-32.2) pg MCHC (32.3-36.5) g/dL RDW (11.6-14.4) % Plt Count (163-337) x10^3/uL MPV (9.4-12.4) fL Gran % (34.0-67.9) % Immature Gran % (Auto) (0.001-0.429) % Nucleat RBC Rel Count (0.00-0.2) % Eos # (Auto) (0.04-0.54) x10^3/uL Immature Gran # (Auto) (0.001-0.031) x10^3u/L Absolute Lymphs (auto) (1.32-3.57) x10^3/uL Absolute Monos (auto) (0.30-0.82) x10^3/uL Absolute Nucleated RBC (0.00-0.012) x10^3u/L Lymphocytes % (21.8-53.1) % Monocytes % (5.3-12.2) % Eosinophils % (0.8-7.0) % Basophils % (0.2-1.2) % Absolute Granulocytes (1.78-5.38) x10^3/uL Basophils # (0.01-0.08) x10^3/uL ESR (0-15) mm/hr Sodium (135-145) mmol/L Potassium (3.5-5.1) mmol/L Chloride (98-107) mmol/L Carbon Dioxide (22-30) mmol/L Anion Gap (5-15) MEQ/L BUN (9-20) mg/dL Creatinine (0.66-1.25) mg/dL Estimated GFR ML/MIN Glucose (74-106) mg/dL POC Glucometer 147 H (74 to 106) mg/dL Hemoglobin A1c (4.5-6.0) % Lactic Acid (0.4-2.0) Calcium (8.4-10.2) mg/dL Total Bilirubin (0.2-1.3) mg/dL AST (17-59) U/L ALT (0-50) U/L Alkaline Phosphatase (38-126) U/L Serum Total Protein (6.3-8.2) g/dL Albumin (3.5-5.0) g/dL Micro Results-Entire Visit: Accuchecks Date 03/13/24 Time 08:00 - Radiology Exams Ordered Rad Exams-Entire Visit: Radiology Procedures Category Date Time Status ELBOW (MINIMUM 3 VIEWS) Stat Exams 03/12/24 15:37 Completed - Procedures and Test Procedures and Tests throughout Hospitalization: Therapy Orders & Screens 03/12/24 18:45 OT Screen per Nursing Assess ONCE Comment: Protocol Order Physician Instructions: Greater than 3 points order OT Admission Screening Reason For Exam: Triggered on Admission Diagnosis: Left elbow abscess Open Wound/Cellutlitis/Pressure Ulcers: Yes Acute Fx/ORIF/Change in wt bearing status: No Severe MUSCULOSKELETAL pain: No ADL Dysfunction: No Acute CVA w/Hemiparesis/Hemiplegia: No Decreased Functional Mobility/Strength: No Sprain/Strain: No Acute Post-op Mobility Dysfunction: No Total Points: 5 PT Screen per Nursing Assess ONCE Comment: Protocol Order Physician Instructions: Greater than 3 points order PT Admission Screenin Reason For Exam: Triggered on Admission Diagnosis: Left elbow abscess Open Wound/Cellutlitis/Pressure Ulcers: Yes Acute Fx/ORIF/Change in wt bearing status: No Severe MUSCULOSKELETAL pain: No ADL Dysfunction: No Acute CVA w/Hemiparesis/Hemiplegia: No Decreased Functional Mobility/Strength: No Sprain/Strain: No Acute Post-op Mobility Dysfunction: No Total Points: 5 Smoking Cessation Education ONCE Comment: Diagnosis: Left elbow abscess Smoking Status: Current every day smoker How long have you smoked: 60 Approximately how many cigarettes per day: 1PPD Do you dip or chew tobacco: No 03/12/24 18:55 PT Eval & Treat ( Order) ONCE Reason for Eval:: left elbow edema Diagnosis: Left elbow abscess 03/13/24 09:34 Respiratory Therapy Assessment DAILY Comment: Diagnosis: Left elbow abscess Discharge Exam General Appearance: no apparent distress, alert, obese Neurologic Exam: alert, oriented x 3, cooperative, normal mood/affect, nml cerebellar function, sensation nml, No motor deficits Eye Exam: PERRL, EOMI, eyes nml inspection Ears, Nose, Throat Exam: normal ENT inspection, pharynx normal, moist mucous membranes Neck Exam: normal inspection, non-tender, supple, full range of motion Respiratory Exam: normal breath sounds, lungs clear, No respiratory distress Cardiovascular Exam: regular rate/rhythm, normal heart sounds Gastrointestinal/Abdomen Exam: soft, No tenderness, No mass Male Genitalia Exam: deferred Rectal Exam: deferred Back Exam: normal inspection, normal range of motion, No CVA tenderness, No vertebral tenderness Extremity Exam: normal inspection, normal range of motion Skin Exam: normal color, warm, dry, other (Left elbow open area with purulent drainage.) Final Diagnosis/Problem List - Final Discharge Diagnosis/Problem (1) Bursitis Current Visit: Yes Status: Acute Code(s): M71.9 - BURSOPATHY, UNSPECIFIED (2) Cellulitis of left elbow Current Visit: Yes Status: Acute Code(s): L03.114 - CELLULITIS OF LEFT UPPER LIMB (3) Diabetes Current Visit: Yes Status: Acute Assessment & Plan: (1) Bursitis Current Visit: Yes Status: Acute Assessment & Plan: - ortho consulted - pt is to be NPO after midnight and IV antibiotics per ortho. - Elevate extremity - BC x2 pending - Zosyn gave in ER and clindamycin IV started - Poplar for pain increased from usual dosing. - tylenol for fever - Hold ASA, Celebrex, Plavix 03/13 - I&D by surgery today, wound vac in place, f/u Weds with ortho OP - D/C with oral antibiotics - Follow culture Code(s): M71.9 - BURSOPATHY, UNSPECIFIED (2) Cellulitis of left elbow Current Visit: Yes Status: Acute Assessment & Plan: - WBC 9.4- trend - see plan above 03/13 - WBC WNL- 8.6 Code(s): L03.114 - CELLULITIS OF LEFT UPPER LIMB (3) Diabetes Current Visit: Yes Status: Acute Assessment & Plan: - oral controlled OP - accuchecks ac/hs, Humalog s/s if needed. - A1C 7.94- uncontrolled Code(s): E11.9 - TYPE 2 DIABETES MELLITUS WITHOUT COMPLICATIONS - Discharge Discharge Date: 03/13/24 Disposition: Home, Self-Care Condition: Stable Prescriptions: New Doxycycline Hyclate 100 mg [Vibramycin 100 MG] 100 mg PO BID 14 Days #14 tab Continue Celecoxib 100 mg [celeBREX 100 MG] 200 mg PO DAILY Enalapril Maleate 10 mg [Vasotec 10 MG] 10 mg PO DAILY hydroCHLOROthiazide [Hydrochlorothiazide] 12.5 mg PO DAILY Aspirin 81 mg PO HS Gabapentin 800 mg PO TID Hydrocodone/Acetaminophen [Poplar 7.5-325 Tablet] 1 each PO Q6H PRN #0 tablet PRN Reason: Pain Metoprolol Tartrate 25 mg [Lopressor 25MG Tab] 25 mg PO HS Clopidogrel Bisulfate [PLAVIX Tablet] 75 mg PO HS Atorvastatin Calcium [Lipitor] 20 mg PO HS Empagliflozin [Jardiance] 10 mg PO DAILY Fluticasone/Umeclidin/Vilanter [Trelegy Ellipta 100-62.5-25] 1 puff IH DAILY Additional Instructions: Elevate left arm to heart level to decrease edema. Use OTC meds for pain such as Tylenol following label directions. Follow up with: RITO GUTIERREZ MD [Primary Care Provider] - TARA DEL CASTILLO MD [ACTIVE STAFF] -
[2024-03-13] MEDS: hydroDIURIL 25 MG PO SCH (12:34)
[2024-03-13] MEDS: Zestril 10 MG PO SCH (12:34)
[2024-03-13] MEDS: JARDIANCE PO SCH (12:35)
[2024-03-13 14:22] VITALS: BP 112/60; PULSE 82; RESP 18
[2024-03-13] MEDS ORDERED: VANCOMYCIN 1.25 GM/250 ML BAG 1.25 GM/250 ML PIGGYBACK IV SCH (16:00)
[2024-03-14 13:05] VITALS: O2SAT 95
--- NOTE | 2024-03-15 13:22 | CONS ---
REASON FOR CONSULT: Left elbow pain. HISTORY: This is an 84-year-old male who presented to the emergency room yesterday with a chief complaint of left elbow pain and swelling. Symptoms arose 4 to 5 days prior and got progressively worse. He was diagnosed with olecranon bursitis and was admitted to the hospitalist and orthopedics was consulted. He was evaluated today on the floor. Overnight, the area opened up and began draining. The patient had complained of feeling fever and chills at home. He denied numbness and tingling. He denied fall or trauma. He told me that he did have work done on his elbow several times in the past but was not clear of any details of prior surgeries. He states that he does have an artificial right hip. PAST MEDICAL HISTORY: Coronary artery disease, high cholesterol, hypertension, previous PR, bronchitis, COPD, emphysema, type 2 diabetes, osteoarthritis, diverticulitis, chronic low back pain. PAST SURGICAL HISTORY: Colon resection, kidney surgery, right hip replacement, back surgery, kidney stone removal. MEDICATIONS: Aspirin 81 mg daily, Celebrex 100 mg daily, enalapril 10 mg daily, hydrochlorothiazide 12.5 mg daily, gabapentin 800 mg three times daily, Amonate as needed, Lipitor 20 mg daily, Plavix 75 mg daily, metoprolol 25 mg daily, Jardiance 10 mg daily, Trelegy Ellipta one puff daily. REVIEW OF SYSTEMS: Positive for fever and chills. Negative for ocular complaints, ENT complaints, cough, shortness of breath. Negative for chest pain, edema, syncope, abdominal pain, discomfort. LAB DATA AND TESTS: WBC 9.4, hemoglobin 18.7, hematocrit 57.6. BUN 24, creatinine 0.83, glucose 113, sodium 135, potassium 4.1. PHYSICAL EXAMINATION: GENERAL: This is an awake, alert, oriented, cooperative male. EXTREMITIES: His left elbow is unwrapped. He can flex and extend his left elbow. He has swelling, tenderness, and fluctuance around the left elbow. The skin over the olecranon region is macerated with 2 to 3 small openings with active drainage. I cannot express much in the way of additional fluid out from the bursa currently but it is exquisitely tender and there is drainage on the pad where he rests his arm. IMPRESSION: Septic bursa. PLAN: Recommend opening and debriding the elbow bursa followed by partial closure with a wound VAC. I have discussed the plan with the patient who is in agreement. I have also explained that sometimes these do not heal after one washout and further surgery might be needed. We will proceed with surgery as planned.
--- NOTE | 2024-03-15 13:23 | OP ---
SURGERY DATE/TIME: 03/13/2024 2406 - 1554 PREOPERATIVE DIAGNOSIS: Infection of left olecranon bursa. POSTOPERATIVE DIAGNOSIS: Infection of left olecranon bursa. PROCEDURE: Incision and drainage of bursa, left elbow. SURGEON: David Olmos MD. INDICATIONS: This patient was admitted yesterday by the hospitalist service with redness, pain and swelling of the left olecranon bursa. He was placed on intravenous antibiotics. Orthopedics was consulted. The patient was evaluated today. Overnight the bursa had developed openings and active drainage. He was still having persistent redness, tenderness, pain and drainage this morning. We recommended further debridement and application of wound vacuum. Consent was obtained. Procedure was performed as follows. DESCRIPTION OF PROCEDURE AND FINDINGS: The patient was taken to the operating room and placed under conscious sedation. He was positioned in a right semilateral decubitus position on a VAC pack. We proceeded to perform sterile prep and drape of the left upper extremity utilizing Betadine. Following draping, we made a longitudinal incision over the olecranon region. There were already 2 to 3 small areas where the infection had eroded through the skin. Once the bursa was opened, we evacuated the remaining purulent material. Cultures were obtained with a swab. We performed pulsatile lavage with 1.5 L of saline. We then bulb syringe lavaged the area with Betadine solution. Following that, we repeated the pulsatile lavage with saline for another 1.5 L. We then used 2-0 nylon suture to reapproximate the portions of the incision that were created leaving the previous openings in place. We then applied a 20 cm Prevena wound vacuum. The suction was tested and was intact. A splint was applied to minimize movement of the elbow. The patient was then repositioned and taken to recovery.
== END 2024-03-13 13:47 | disposition home or self-care (01) ==
LOC: ED 14:25 → MED SURG 18:01
PROVIDERS: ADMIT Internal Medicine; ATTEND Internal Medicine
DX: M70.32 Other bursitis of elbow, left elbow (principal); L03.114 Cellulitis of left upper limb; E11.9 Type 2 diabetes mellitus without complications; I25.10 Atherosclerotic heart disease of native coronary artery without angina pectoris; E78.5 Hyperlipidemia, unspecified; I25.2 Old myocardial infarction; I10 Essential (primary) hypertension; F17.200 Nicotine dependence, unspecified, uncomplicated; Z79.899 Other long term (current) drug therapy
CPT/HCPCS: 23931; 36415; 73080; 80053; 82947; 83036; 83605; 85025; 85027; 85652; 87040; 94760; 96365; 96374; 96375; 99204; 99285; G0378; J1170; J1817; J2250; J2405; J2704; J3010; A9270-GY; J3370

== ENCOUNTER 2024-10-11 09:40 | Emergency (ER) | payer MEDICARE, OTHER ==
[2024-10-11] MEDS ORDERED: Zofran 4 MG/2 ML VIAL ONE (10:20)
[2024-10-11] MEDS ORDERED: Sodium Chloride 0.9% 1000 ML 1,000 ML ONE (10:20)
[2024-10-11] MEDS ORDERED: Hydromorphone 1 mg/ml Injection ONE (10:20)
[2024-10-11 10:26] LABS: Absolute Neutrophil Ct (ANC) 7.37 x10^3/uL (1.78-5.38); BASOPHIL % 0.5 % (0.2-1.2); Basophil (Absolute #) 0.05 x10^3/uL (0.01-0.08); Eosinophil % 0.5 % (0.8-7.0); Eosinophil (Absolute #) 0.05 x10^3/uL (0.04-0.54); Hematocrit 54.5 % (40.1-51.0); Hemoglobin 17.8 g/dL (13.7-17.5); IMMATURE GRAN # 0.04 x10^3u/L (0.001-0.031); IMMATURE GRAN % 0.4 % (0.001-0.429); Lymphocyte (Absolute #) 1.14 x10^3/uL (1.32-3.57); Lymphocytes % 11.9 % (21.8-53.1); Mean Corpuscular Hemoglobin 31.7 pg (25.7-32.2); Mean Corpuscular Hgb Concent. 32.7 g/dL (32.3-36.5); Mean Platelet Volume 9.1 fL (9.4-12.4); Monocyte (Absolute #) 0.89 x10^3/uL (0.30-0.82); Monocytes % 9.3 % (5.3-12.2); Neutrophil % 77.4 % (34.0-67.9); Platelet Count 213 x10^3/uL (163-337); Red Blood Count 5.62 x10^6/uL (4.63-6.08); Red Cell Distribution Width 14.2 % (11.6-14.4); White Blood Count 9.5 x10^3/uL (4.23-9.07)
[2024-10-11] MEDS: Zofran 4 MG/2 ML VIAL IV ONE (10:27)
[2024-10-11] MEDS: Sodium Chloride 0.9% 1000 ML 1,000 ML IV STA (10:27)
[2024-10-11] MEDS: Hydromorphone 1 mg/ml Injection IV ONE (10:28)
--- NOTE | 2024-10-11 10:32 | ERPHSYRPT ---
- History of Present Illness Time Seen by Provider: 10/11/24 10:27 Source: patient Exam Limitations: no limitations Patient Subjective Stated Complaint: PT STATES THAT HE "CANNOT SWOLLOW, MY THROAT IS VERY SORE". PT DX WITH TRIGEMINAL NURALGIA RECENTLY. Triage Nursing Assessment: PT AMB TO STRETCHER BED W/O DIFFCULTY, STEADY GAIT WITH CANE. COLOR TRUE TO RACE. THROAT ASSESSMENT SHOWS NO S/S OF SWELLING VISIABLE. PT UNABLE TO OPEN MOUTH WIDE D/T PAIN. PT C/O PAIN IN ANTERIOR NECK, GR, DENIES SOB OR CP. PT ABLE TO SPEAK IN CLEAR, BUT SLIGHTLY GARBLED SENTENCES AND ANSWER QUESTIONS APPROPRIATELY. PT STATES HE HAS DX OF BLACK LUNG. Physician History: Patient is a 84-year-old male with significant past medical history of coronary artery disease severe degenerative disc disease osteoarthritis hypertension COPD history of smoking started having right-sided facial pain 3 days ago where he went to see the primary care physician was diagnosed with trigeminal neuralgia. Patient was given Toradol and Solu-Medrol injection as well as started on valacyclovir and Medrol Dosepak. Patient right side facial pain continued and now he started having difficulty swallowing so he came to the emergency room. He denies any fever chills nausea vomiting headache change in the vision shortness of breath chest pain abdominal pain. Patient denies same type of symptoms in the past. Timing/Duration: day(s) (3-4 days) Severity: severe Associated Symptoms: other (difficulty in swollowing since today AM) Allergies/Adverse Reactions: morphine Adverse Reaction (Verified 10/11/24 09:43) PT STATES "IN LARGE DOSES I GET MOUTHY AND MEAN" STATES GETS CONFUSED Home Medications: Aspirin 81 mg PO HS 02/23/15 [History] Celecoxib 100 mg [celeBREX 100 MG] 200 mg PO DAILY 02/23/15 [History] Enalapril Maleate 10 mg [Vasotec 10 MG] 10 mg PO DAILY 02/23/15 [History] hydroCHLOROthiazide [Hydrochlorothiazide] 12.5 mg PO DAILY 02/23/15 [History] Gabapentin 800 mg PO TID 02/05/17 [History] Atorvastatin Calcium [Lipitor] 20 mg PO HS 05/23/20 [History] Clopidogrel Bisulfate [PLAVIX Tablet] 75 mg PO HS 05/23/20 [History] Metoprolol Tartrate 25 mg [Lopressor 25MG Tab] 25 mg PO HS 05/23/20 [History] Empagliflozin [Jardiance] 10 mg PO DAILY 03/12/24 [History] Fluticasone/Umeclidin/Vilanter [Trelegy Ellipta 100-62.5-25] 1 puff IH DAILY 03/12/24 [History] Prednisone 10 mg [Deltasone 10 mg] 10 mg PO DAILY 10/11/24 [History] Valacyclovir HCl [valACYclovir] 1,000 mg PO BID 10/11/24 [History] Hx Tetanus, Diphtheria Vaccination/Date Given: Yes Hx Influenza Vaccination/Date Given: Yes Hx Pneumococcal Vaccination/Date Given: Yes Immunizations Up to Date: Yes Travel Risk - International Travel Have you traveled outside of the country in past 3 weeks: No - Emerging Infectious Disease Are you exhibiting symptoms associated with any current EIDs: No - Review of Systems Constitutional: No Fever, No Chills Eyes: No Symptoms Ears, Nose, & Throat: No Symptoms, Mouth Pain, Throat Pain, Throat Swelling Respiratory: No Cough, No Dyspnea Cardiac: No Chest Pain, No Edema, No Syncope Abdominal/Gastrointestinal: No Abdominal Pain, No Nausea, No Vomiting, No Diarrhea Genitourinary Symptoms: No Dysuria Musculoskeletal: No Back Pain, No Neck Pain Skin: No Rash Neurological: No Dizziness, No Focal Weakness, No Sensory Changes Psychological: No Symptoms Endocrine: No Symptoms All Other Systems: Reviewed and Negative - Past Medical History Pertinent Past Medical History: Yes Neurological History: No Pertinent History ENT History: Cataracts Cardiac History: Coronary Artery Disease, High Cholesterol, Hypertension, Myocar dial Infarction (VT), Other Respiratory History: Bronchitis, COPD, Emphysema Endocrine Medical History: Diabetes Type II Musculoskeletal History: Osteoarthritis GI Medical History: Diverticulitis History: Other Psycho-Social History: No Pertinent History Male Reproductive Disorders: No Pertinent History Other Medical History: PT. HAS THREE CARDIAC STENTS. SEE LIST IN START. RECENT KIDNEY STONE REMOVED. 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 cyst removed from colon. CATARACT REMOVAL - Social History Smoking Status: Current every day smoker How long have you smoked: 60 Exposure to second hand smoke: Yes Drug Use: none - Social Determinants of Health Will the patient participate in the screening: Yes Do you worry about a steady place to live?: No Do you have any problems with any of the following?: No known problems In the past 12 months,have you had to go without utilities?: No Transportation Issues: No Has anyone in your support network made you feel unsafe?: No Have you or anyone in your house had to go w/o enough food: No - Nursing Vital Signs Nursing Vital Signs: Initial Vital Signs Temperature 96.8 F 10/11/24 09:42 Pulse Rate 94 H 10/11/24 09:42 Respiratory Rate 20 10/11/24 09:42 Blood Pressure 138/84 10/11/24 09:42 O2 Sat by Pulse Oximetry 97 10/11/24 09:42 Pain Scale Pain Intensity 5 - Physical Exam General Appearance: moderate distress, alert Eye Exam: PERRL/EOMI, eyes nml inspection Ears, Nose, Throat Exam: normal ENT inspection, TMs normal, pharynx normal, moist mucous membranes, No pharyngeal erythema, No tonsillar exudate Neck Exam: normal inspection, non-tender, supple, full range of motion, No meningismus, No Brudzinski, No Kernig's Respiratory Exam: normal breath sounds, lungs clear, No respiratory distress Cardiovascular Exam: regular rate/rhythm, normal heart sounds, normal peripheral pulses Gastrointestinal/Abdomen Exam: soft, normal bowel sounds, No tenderness, No mass Back Exam: normal inspection, normal range of motion, No CVA tenderness, No vertebral tenderness Extremity Exam: normal inspection, normal range of motion, pelvis stable Neurologic Exam: alert, oriented x 3, cooperative, normal mood/affect, nml cerebellar function, nml station & gait, sensation nml, No motor deficits Skin Exam: normal color, warm, dry, No rash Lymphatic Exam: No adenopathy SpO2: 97 - Course Nursing assessment & vital signs reviewed: Yes - CT Exams Head CT Interpretation: Tele-radiologist Report Soft Tissue Neck CT Interpretation: Tele-radiologist Report Ordered Tests: Active Orders 24 hr Category Date Time Status HEAD WITHOUT CONTRAST [CT] Stat Exams 10/11/24 10:09 Completed NECK WITH CONTRAST [CT] Stat Exams 10/11/24 11:22 Completed NECK WO CONTRAST [CT] Stat Exams 10/11/24 09:51 Completed CBC W DIFF Stat Lab 10/11/24 09:50 Completed CMP Stat Lab 10/11/24 09:50 Completed CULTURE,URINE Stat Lab 10/11/24 11:15 Received Erythrocyte Sedimentation Rate Stat Lab 10/11/24 09:50 Completed UA W/RFX UR CULTURE Stat Lab 10/11/24 11:15 Completed Medication Summary Discontinued Medications Generic Name Dose Route Start Last Admin Trade Name Freq PRN Reason Stop Dose Admin Hydrocortisone Sodium Succinate 250 mg 10/11/24 10:58 10/11/24 11:06 Hydrocortisone Sod Succinate 250 Mg/Vial Vial IV 10/11/24 10:59 250 mg Q6H STA Administration Hydrocortisone Sodium Succinate Confirm 10/11/24 11:04 Hydrocortisone Sod Succinate 250 Mg/Vial Vial Administered 10/11/24 11:05 Dose 250 mg .ROUTE .STK-MED ONE Hydromorphone HCl 1 mg 10/11/24 09:47 10/11/24 10:28 Hydromorphone 1 Mg/1ml Inj IV 10/11/24 09:48 1 mg STAT ONE Administration Hydromorphone HCl Confirm 10/11/24 10:20 Hydromorphone 1 Mg/1ml Inj Administered 10/11/24 10:21 Dose 1 mg .ROUTE .STK-MED ONE Sodium Chloride 1,000 mls @ 999 mls/hr 10/11/24 09:47 10/11/24 10:27 Sodium Chloride 0.9% 1000 Ml IV 10/11/24 10:47 999 mls/hr .Q1H1M STA Administration Sodium Chloride Confirm 10/11/24 10:20 Sodium Chloride 0.9% 1000 Ml Administered 10/11/24 10:21 Dose 1,000 mls @ ud .ROUTE .STK-MED ONE Ceftriaxone Sodium 2 gm in 100 mls @ 200 mls/hr 10/11/24 12:22 10/11/24 12:33 Rocephin 2 Gm/100 Ml Nacl IV 10/11/24 12:51 200 ml/hr STAT ONE 200 mls/hr Administration Ceftriaxone Sodium Confirm 10/11/24 12:29 Rocephin 2 Gm/100 Ml Nacl Administered 10/11/24 12:30 Dose 2 gm in 100 mls @ ud IV .[facility] ONE Ondansetron HCl 4 mg 10/11/24 09:47 10/11/24 10:27 Ondansetron Hcl 4 Mg/2 Ml Vial IV 10/11/24 09:48 4 mg STAT ONE Administration Ondansetron HCl Confirm 10/11/24 10:20 Ondansetron Hcl 4 Mg/2 Ml Vial Administered 10/11/24 10:21 Dose 4 mg .ROUTE .K-[facility] ONE Lab/Rad Data: Laboratory Result Diagrams 10/11/24 09:50 10/11/24 09:50 Laboratory Results 10/11/24 10/11/24 10/11/24 Range/Units 11:15 09:50 09:50 WBC 9.5 H (4.23-9.07) x10^3/uL RBC 5.62 (4.63-6.08) x10^6/uL Hgb 17.8 H (13.7-17.5) g/dL Hct 54.5 H (40.1-51.0) % MCV 97.0 H (79.0-92.2) fL MCH 31.7 (25.7-32.2) pg MCHC 32.7 (32.3-36.5) g/dL RDW 14.2 (11.6-14.4) % Plt Count 213 (163-337) x10^3/uL MPV 9.1 L (9.4-12.4) fL Gran % 77.4 H (34.0-67.9) % Immature Gran % (Auto) 0.4 (0.001-0.429) % Nucleat RBC Rel Count 0.0 (0.00-0.2) % Eos # (Auto) 0.05 (0.04-0.54) x10^3/uL Immature Gran # (Auto) 0.04 H (0.001-0.031) x10^3u/L Absolute Lymphs (auto) 1.14 L (1.32-3.57) x10^3/uL Absolute Monos (auto) 0.89 H (0.30-0.82) x10^3/uL Absolute Nucleated RBC 0.00 (0.00-0.012) x10^3u/L Lymphocytes % 11.9 L (21.8-53.1) % Monocytes % 9.3 (5.3-12.2) % Eosinophils % 0.5 L (0.8-7.0) % Basophils % 0.5 (0.2-1.2) % Absolute Granulocytes 7.37 H (1.78-5.38) x10^3/uL Basophils # 0.05 (0.01-0.08) x10^3/uL ESR 52 H (0-15) mm/hr Sodium 139 (135-145) mmol/L Potassium 4.1 (3.5-5.1) mmol/L Chloride 104 (98-107) mmol/L Carbon Dioxide 25 (22-30) mmol/L Anion Gap 14.9 (5-15) MEQ/L BUN 23 H (9-20) mg/dL Creatinine 0.72 (0.66-1.25) mg/dL Estimated GFR 90.7 ML/MIN Glucose 140 H (74-106) mg/dL Calcium 8.9 (8.4-10.2) mg/dL Total Bilirubin 1.30 (0.2-1.3) mg/dL AST 27 (17-59) U/L ALT 28 (0-50) U/L Alkaline Phosphatase 67 (38-126) U/L Serum Total Protein 7.3 (6.3-8.2) g/dL Albumin 4.2 (3.5-5.0) g/dL Urine Color Yellow (Yellow) Urine Appearance Clear (Clear) Urine pH 5.5 (4.6-8.0) Ur Specific [place] >=1.030 A (1.005-1.030) Urine Protein Negative (Negative) Urine Glucose (UA) >=1000 A (Negative) mg/dL Urine Ketones 15 A (Negative) Urine Blood Negative (Negative) Urine Nitrite Negative (Negative) Urine Bilirubin Negative (Negative) Urine Urobilinogen 1.0 A (0.2) mg/dL Ur Leukocyte Esterase Small A (Negative) U Hyaline Cast (Auto) NONE SEEN (0-2) /LPF Urine Microscopic RBC 0-2 (0-5) /HPF Urine Microscopic WBC 21-50 A (0-5) /HPF Ur Epithelial Cells None Seen (None Seen) /HPF Urine Bacteria None Seen (None Seen) /HPF Urine Culture Reflexed YES (NO) CT/NECK WO CONTRAST CLINICAL HISTORY: right side fascial and neck pain COMPARISON: None. TECHNIQUE: CT scan of the neck was performed without administration of intravenous contrast. Sagittal and coronal reconstructions were obtained. One of the following dose reduction techniques were utilized for this exam: Automated exposure control, adjustment of the mA and/or kV according to patient size, and use of iterative reconstruction. Total DLP 537.24 mGy.cm, CTDI 17.85 mGy FINDINGS: Paranasal sinuses: Totally opacified right maxillary sinus with obliteration of the right ostiomeatal complex suggesting a right maxillary sinusitis clinical correlation. Mild mucosal thickening of the right ethmoidal air cells Nasopharynx: Normal size and appearance. No masses. Oropharynx: Normal size and appearance. No masses. Larynx and Hypopharynx: Normal appearance of the laryngeal structures. Vocal cords are normal in appearance and movement. No masses. Thyroid Gland: Normal size and morphology. No nodules or masses. Salivary Glands: Parotid, submandibular, and sublingual glands are normal in size and appearance. No evidence of sialadenitis or masses. Lymph Nodes: Bilateral subcentimetric deep cervical and submandibular lymph nodes, likely reactive. Normal appearance of the lymph node chains. Vascular Structures: Normal appearance of the carotid arteries, jugular veins, and other major vessels. No evidence of vascular malformations or aneurysms. Soft Tissues: Normal appearance of the soft tissues of the neck. No abnormal masses, swelling, or fluid collections. Bones: C4-5-6 and 7 laminectomy with transpedicular internal fixation by rods and screw. Spine degenerative changes with osteophytes and multilevel disc osteophyte complex. Minimal anterolisthesis of C4 over C5 vertebra. Non-visualized right upper premolar and molar tooth with a bony defect noted at the inferior wall of the right maxillary sinus could be related to prior tooth extraction, clinical correlation is advised. No fractures, lytic or sclerotic lesions. Airway: Trachea and main bronchi are patent. No evidence of tracheal or bronchial stenosis or masses. IMPRESSION: 1. Nonvisualized right upper premolar and molar tooth with bony defect at the inferior wall of the right maxillary sinus, could be related to prior tooth extraction, with totally opacified right maxillary sinus, suggesting sinusitis. clinical correlation is advised 2. Mild right ethmoidal sinusitis. CT/HEAD WITHOUT CONTRAST CLINICAL HISTORY: right side fascial and neck pain COMPARISON: 02/23/2015. TECHNIQUE: An axial non-contrast CT scan of the brain was performed from the skull base to the high parietal region. One of the following dose reduction techniques were utilized for this exam: Automated exposure control, adjustment of the mA and/or kV according to patient size, and use of iterative reconstruction. FINDINGS: Brain Parenchyma: The prominent ventricular system and the extra-axial spaces suggesting age-appropriate senile changes Diffuse periventricular white matter hypodensity suggesting chronic microvascular ischemic changes Normal attenuation of the cerebral hemispheres, cerebellum, and brainstem. No evidence of acute infarct, hemorrhage, or mass effect. No abnormal areas of hypo- or hyperattenuation. Ventricular System: Ventricles are normal in size and configuration. No evidence of hydrocephalus or ventricular enlargement. Subarachnoid Spaces: Normal sulci and cisterns. No evidence of subarachnoid hemorrhage or extra-axial fluid collections. Cerebellum and Brainstem: Normal size and signal. No masses, lesions, or areas of abnormal signal. Orbits: Normal appearance of the globes, optic nerves, and extraocular muscles. No evidence of orbital masses or abnormal signal. Sinuses: Totally opacified right maxillary sinus with obliteration of the right ostiomeatal complex suggesting a right maxillary sinusitis clinical correlation and dedicated study are advised Mild mucosal thickening of the right ethmoidal air cells Mastoid Air Cells: Clear mastoid air cells. No evidence of mastoiditis. Skull: Normal skull morphology. IMPRESSION: 1. No evidence of acute infarct, hemorrhage, or mass effect. 2. Age-appropriate senile changes with chronic microvascular ischemic changes, mild progress since the last study. 3. 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 TECHNIQUE: CT scan of the neck was performed with the administration of intravenous contrast 60 ml Isovue. Sagittal and coronal reconstructions were obtained. One of the following dose reduction techniques were utilized for this exam: Automated exposure control, adjustment of the mA and/or kV according to patient size, and use of iterative reconstruction. FINDINGS: Nasopharynx: Normal size and appearance. No masses or abnormal enhancement. Oropharynx: Normal size and appearance. No masses or abnormal enhancement. Larynx and Hypopharynx: Normal appearance of the laryngeal structures. Vocal cords are normal in appearance and movement. No masses or abnormal enhancement. Thyroid Gland: Normal size and morphology. No nodules or masses. Normal enhancement post-contrast. Salivary Glands: There is a small benign-looking enhancing nodule (8 x 4 mm) seated eccenteric at the right parotid superficial lobe. Left parotid, both submandibular, and sublingual glands are normal in size and appearance. No evidence of sialadenitis or masses. Lymph Nodes: No pathologically enlarged cervical lymph nodes (allowing for bilateral subcentimetric deep cervical and submandibular lymph nodes; reactive/non-specific). Normal appearance of the lymph node chains. Vascular Structures: Normal enhancement of the carotid arteries, jugular veins, and other major vessels post-contrast. No evidence of vascular malformations, aneurysms, or thrombosis. Soft Tissues: Normal appearance of the soft tissues of the neck. No abnormal masses, swelling, or fluid collections. Bones: C4 down to C7 spinolaminectomies with transpedicular fixation by rods and screws. Spine degenerative changes of the cervical spine are noticed. Minimal anterolisthesis of C4 over C5 vertebrae. Defective right upper premolar and molar teeth with a small bony defect noticed at the inferior wall of the right maxillary sinus, likely related to prior tooth extraction. No related enhancing soft tissue masses or aggressive cortical destruction. No fractures, lytic or sclerotic lesions. Paranasal sinuses: Totally opacified right maxillary sinus with obliteration of the right ostiomeatal complex. No related enhancing soft tissue masses or aggressive cortical destruction. Mild mucosal thickening of the right ethmoidal air cells Airway: The trachea and main bronchi are patent. No evidence of tracheal or bronchial stenosis or masses. IMPRESSION: 1. Defective right upper premolar and molar teeth with a small bony defect noticed at the inferior wall of the right maxillary sinus, likely related to prior tooth extraction. No related enhancing soft tissue masses or aggressive cortical destruction. 2. Marked right maxillary and mild ethmoidal sinusitis. 3. A small benign-looking enhancing nodule seated eccentric at the right parotid superficial lobe (was not clearly seen in the prior non-contrast - Progress Progress: improved, pain not gone completely Counseled pt/family regarding: lab results, diagnosis, need for follow-up, rad results Medical Desision Making - Independent Historian Additional History obtained from: Spouse - Diagnostic Testing Diagnostic test were ordered, analyzed, and reviewed by me: Yes Radiological Interpretation: Interpreted by me, Reviewed by me, Teleradiologist Report - Risk of complications The pt has a mod risk of morbidity or mortality based on: Need for prescription drug management - Departure Departure Disposition: Home Clinical Impression: Abscessed tooth, Atypical face pain Maxillary sinusitis, acute Qualifiers: Recurrence: recurrent Qualified Code(s): J01.01 - Acute recurrent maxillary sinusitis Condition: Stable Critical Care Time: No Referrals: RITO GUTIERREZ MD [Primary Care Provider] - Follow Up with PCP/3 days Additional Instructions: Discharge/Care Plan DELISA MIMS was seen on 10/11/24 in the Emergency Room. The patient was counseled regarding Diagnosis,Lab results, Imaging studies, need for follow up and when to return to the Emergency Room. Prescriptions given: Discharge Note I have spoken with the patient and/or caregivers. I have explained the patient's condition, diagnosis and treatment plan based on the information available to me at this time. I have answered the patient's and/or caregiver's questions and addressed any concerns. The patient and/or caregivers have as good understanding of the patient's diagnosis, condition and treatment plan as can be expected at this point. The vital signs have been stable. The patient's condition is stable and appropriate for discharge from the emergency department. The patient will pursue further outpatient evaluation with the primary care physician or other designated or consulting physician as outlined in the discharge instructions. The patient and/or caregivers are agreeable to this plan of care and follow-up instructions have been explained in detail. The patient and/or caregivers have received these instruction. The patient/and or caregivers are aware that any significant change in condition or worsening of symptoms should prompt an immediate return to this or the closest emergency department or call 911. DELISA MIMS was seen on 10/11/24 n the Emergency Room. At that time you were treated for an emergent condition, during your visit Laboratory, Radiology and/or other procedures may have been ordered. It is very important that you follow-up with your Primary Care Physician RITO GUTIERREZ within the next 24-48 hours to review your Emergency Room visit and the final results of testing that was ordered. Some test results such as Urine Cultures, Blood Cultures, and other cultures if ordered will not be finalized for 24-48 hours. If you do not have a Primary Care Provider please call the medical records department at [phone] ext [phone] to obtain a copy of your results or you may sign into our patient portal to obtain these results by visiting us @ [email or web address] and completing the following steps: 1. Click on the Patient Portal link 2. Click the Patient Self Enrollment Link to complete the enrollment form and entering your 3. Once the enrollment form is completed you will receive an email with a temporary ID and password at the email address you provided. 4. Next choose a user name and password. Your user name must be at least 4 characters long and your password must be at least 4 characters long. 5. Choose a security question from the list and provide your answer to the question. If you already have signed into the Health Portal you may access your Health Care Information 18/02 by the following steps: 1. Login to our website @ [email or web address] 2. Enter your original user name and password. FAQS The [facility] Health Portal is an online tool that contains your Lab Results, Radiology Reports, Visit History, Discharge Instructions and Health Summary Lab and Radiology Results will not be available for 72 hours on the portal. The Portal is a secure site, passwords are encryted and URLs are re-written so they cannot be copied and pasted. You and authorized family members are the only ones who can access your Portal. Also there is a timeout feature that protects your information if you leave the Portal page open. If you have technical difficulty please use the Contact Us link on the page this will allow you to submit any questions you have regarding the Portal or you may contact the Medical Record Department at [phone]. Prescriptions: Cephalexin Mh 500 mg [Keflex 500 mg] 500 mg PO Q6H #40 cap Hydrocodone/Acetaminophen [[place] 10-325 mg] 1 tablet PO Q4H PRN PRN #20 tablet MDD 4 tabs PRN Reason: Pain
[2024-10-11 10:38] LABS: ALBUMIN 4.2 g/dL (3.5-5.0); ANION GAP 14.9 MEQ/L (5-15); BILIRUBIN,TOTAL 1.3 mg/dL (0.2-1.3); Calcium 8.9 mg/dL (8.4-10.2); Creatinine 1 0.72 mg/dL (0.66-1.25); EST GLOMERULAR FILTRATION RATE 90.7 ML/MIN; Potassium 4.1 mmol/L (3.5-5.1); Total Protein 7.3 g/dL (6.3-8.2)
[2024-10-11 10:39] LABS: Erythrocyte Sedimentation Rate 52 mm/hr (0-15)
--- NOTE | 2024-10-11 11:00 | XRAY ---
CLINICAL HISTORY: right side fascial and neck pain COMPARISON: 02/23/2015. TECHNIQUE: An axial non-contrast CT scan of the brain was performed from the skull base to the high parietal region. One of the following dose reduction techniques were utilized for this exam: Automated exposure control, adjustment of the mA and/or kV according to patient size, and use of iterative reconstruction. FINDINGS: Brain Parenchyma: The prominent ventricular system and the extra-axial spaces suggesting age-appropriate senile changes Diffuse periventricular white matter hypodensity suggesting chronic microvascular ischemic changes Normal attenuation of the cerebral hemispheres, cerebellum, and brainstem. No evidence of acute infarct, hemorrhage, or mass effect. No abnormal areas of hypo- or hyperattenuation. Ventricular System: Ventricles are normal in size and configuration. No evidence of hydrocephalus or ventricular enlargement. Subarachnoid Spaces: Normal sulci and cisterns. No evidence of subarachnoid hemorrhage or extra-axial fluid collections. Cerebellum and Brainstem: Normal size and signal. No masses, lesions, or areas of abnormal signal. Orbits: Normal appearance of the globes, optic nerves, and extraocular muscles. No evidence of orbital masses or abnormal signal. Sinuses: Totally opacified right maxillary sinus with obliteration of the right ostiomeatal complex suggesting a right maxillary sinusitis clinical correlation and dedicated study are advised Mild mucosal thickening of the right ethmoidal air cells Mastoid Air Cells: Clear mastoid air cells. No evidence of mastoiditis. Skull: Normal skull morphology. IMPRESSION: 1. No evidence of acute infarct, hemorrhage, or mass effect. 2. Age-appropriate senile changes with chronic microvascular ischemic changes, mild progress since the last study. 3. Right maxillary and ethmoidal sinusitis Electronically Signed by: Oumar Chen MD. (10/11/2024 10:57:24 EDT)
[2024-10-11] MEDS ORDERED: solu-CORTEF 250MG ONE (11:04)
[2024-10-11] MEDS: solu-CORTEF 250MG IV STA (11:06)
[2024-10-11 11:10] VITALS: RESP 18
--- NOTE | 2024-10-11 11:19 | XRAY ---
CLINICAL HISTORY: right side fascial and neck pain COMPARISON: None. TECHNIQUE: CT scan of the neck was performed without administration of intravenous contrast. Sagittal and coronal reconstructions were obtained. One of the following dose reduction techniques were utilized for this exam: Automated exposure control, adjustment of the mA and/or kV according to patient size, and use of iterative reconstruction. Total DLP 537.24 mGy.cm, CTDI 17.85 mGy FINDINGS: Paranasal sinuses: Totally opacified right maxillary sinus with obliteration of the right ostiomeatal complex suggesting a right maxillary sinusitis clinical correlation. Mild mucosal thickening of the right ethmoidal air cells Nasopharynx: Normal size and appearance. No masses. Oropharynx: Normal size and appearance. No masses. Larynx and Hypopharynx: Normal appearance of the laryngeal structures. Vocal cords are normal in appearance and movement. No masses. Thyroid Gland: Normal size and morphology. No nodules or masses. Salivary Glands: Parotid, submandibular, and sublingual glands are normal in size and appearance. No evidence of sialadenitis or masses. Lymph Nodes: Bilateral subcentimetric deep cervical and submandibular lymph nodes, likely reactive. Normal appearance of the lymph node chains. Vascular Structures: Normal appearance of the carotid arteries, jugular veins, and other major vessels. No evidence of vascular malformations or aneurysms. Soft Tissues: Normal appearance of the soft tissues of the neck. No abnormal masses, swelling, or fluid collections. Bones: C4-5-6 and 7 laminectomy with transpedicular internal fixation by rods and screw. Spine degenerative changes with osteophytes and multilevel disc osteophyte complex. Minimal anterolisthesis of C4 over C5 vertebra. Non-visualized right upper premolar and molar tooth with a bony defect noted at the inferior wall of the right maxillary sinus could be related to prior tooth extraction, clinical correlation is advised. No fractures, lytic or sclerotic lesions. Airway: Trachea and main bronchi are patent. No evidence of tracheal or bronchial stenosis or masses. IMPRESSION: 1. Nonvisualized right upper premolar and molar tooth with bony defect at the inferior wall of the right maxillary sinus, could be related to prior tooth extraction, with totally opacified right maxillary sinus, suggesting sinusitis. clinical correlation is advised 2. Mild right ethmoidal sinusitis. Electronically Signed by: Oumar Chen MD. (10/11/2024 11:13:43 EDT)
[2024-10-11 12:08] VITALS: O2SAT 97
[2024-10-11] MEDS ORDERED: ROCEPHIN 2 GM/100 ML NACL 2 GM/100 ML IVPB IV ONE (12:29)
[2024-10-11] MEDS: ROCEPHIN 2 GM/100 ML NACL 2 GM/100 ML IVPB IV ONE (12:33)
--- NOTE | 2024-10-11 12:47 | XRAY ---
CLINICAL HISTORY: right side neck swelling COMPARISON: Non-contrast CT neck was done earlier this day 10/11/2024 09:00:07 ENVIRONMENTAL SERVICES MANAGER. TECHNIQUE: CT scan of the neck was performed with the administration of intravenous contrast 60 ml Isovue. Sagittal and coronal reconstructions were obtained. One of the following dose reduction techniques were utilized for this exam: Automated exposure control, adjustment of the mA and/or kV according to patient size, and use of iterative reconstruction. FINDINGS: Nasopharynx: Normal size and appearance. No masses or abnormal enhancement. Oropharynx: Normal size and appearance. No masses or abnormal enhancement. Larynx and Hypopharynx: Normal appearance of the laryngeal structures. Vocal cords are normal in appearance and movement. No masses or abnormal enhancement. Thyroid Gland: Normal size and morphology. No nodules or masses. Normal enhancement post-contrast. Salivary Glands: There is a small benign-looking enhancing nodule (8 x 4 mm) seated eccenteric at the right parotid superficial lobe. Left parotid, both submandibular, and sublingual glands are normal in size and appearance. No evidence of sialadenitis or masses. Lymph Nodes: No pathologically enlarged cervical lymph nodes (allowing for bilateral subcentimetric deep cervical and submandibular lymph nodes; reactive/non-specific). Normal appearance of the lymph node chains. Vascular Structures: Normal enhancement of the carotid arteries, jugular veins, and other major vessels post-contrast. No evidence of vascular malformations, aneurysms, or thrombosis. Soft Tissues: Normal appearance of the soft tissues of the neck. No abnormal masses, swelling, or fluid collections. Bones: C4 down to C7 spinolaminectomies with transpedicular fixation by rods and screws. Spine degenerative changes of the cervical spine are noticed. Minimal anterolisthesis of C4 over C5 vertebrae. Defective right upper premolar and molar teeth with a small bony defect noticed at the inferior wall of the right maxillary sinus, likely related to prior tooth extraction. No related enhancing soft tissue masses or aggressive cortical destruction. No fractures, lytic or sclerotic lesions. Paranasal sinuses: Totally opacified right maxillary sinus with obliteration of the right ostiomeatal complex. No related enhancing soft tissue masses or aggressive cortical destruction. Mild mucosal thickening of the right ethmoidal air cells Airway: The trachea and main bronchi are patent. No evidence of tracheal or bronchial stenosis or masses. IMPRESSION: 1. Defective right upper premolar and molar teeth with a small bony defect noticed at the inferior wall of the right maxillary sinus, likely related to prior tooth extraction. No related enhancing soft tissue masses or aggressive cortical destruction. 2. Marked right maxillary and mild ethmoidal sinusitis. 3. A small benign-looking enhancing nodule seated eccentric at the right parotid superficial lobe (was not clearly seen in the prior non-contrast series), probably vascular or small adenoma. Advise US follow up. Electronically Signed by: Oumar Chen MD. (10/11/2024 12:42:01 EDT)
[2024-10-11 12:51] LABS: Appearance Clear (Clear); Bacteria None Seen /HPF (None Seen); Bilirubin Negative (Negative); Blood Negative (Negative); Epithelial Cells None Seen /HPF (None Seen); Glucose, Urine >=1000 mg/dL (Negative); Hyaline Casts NONE SEEN /LPF (0-2); Ketones 15 (Negative); Leukocyte Esterase Small (Negative); Nitrite Negative (Negative); Ph 5.5 (4.6-8.0); Protein,Urine Dip Negative (Negative); RBC 0-2 /HPF (0-5); Specific Gravity >=1.030 (1.005-1.030); WBC 21-50 /HPF (0-5)
[2024-10-11 13:21] VITALS: BP 148/92; PULSE 90; TEMP 97.4
== END 2024-10-11 13:40 | disposition home or self-care (01) ==
LOC: ED 09:40
DX: K04.7 Periapical abscess without sinus (principal); G50.1 Atypical facial pain; J01.01 Acute recurrent maxillary sinusitis; R13.10 Dysphagia, unspecified; I10 Essential (primary) hypertension; E78.5 Hyperlipidemia, unspecified; E11.9 Type 2 diabetes mellitus without complications; Z79.02 Long term (current) use of antithrombotics/antiplatelets; Z79.84 Long term (current) use of oral hypoglycemic drugs; Z79.52 Long term (current) use of systemic steroids; Z79.899 Other long term (current) drug therapy; Z72.0 Tobacco use
CPT/HCPCS: 36415; 70450; 70490; 70491; 80053; 81001; 85025; 85652; 87086; 96374; 96375; 99285; J0696; J1171; J1720; J2405

== ENCOUNTER 2024-11-07 12:54 | Emergency (ER) | payer MEDICARE, OTHER ==
--- NOTE | 2024-11-07 12:59 | ERPHSYRPT ---
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 Gutierrez secondary to fall onto his right hip. He is now complaining of right hip pain. He could not bear weight after the fall. Patient had a right hip replacement in [facility] in the past. Patient is on Plavix. He fell going up steps. He missed a step and fell onto his right hip. He denies head or neck injury or pain. He denies chest pain. He denies shortness of breath. He is a daily smoker of tobacco. Patient has a history of hypertension, hyperlipidemia, coronary artery disease (coronary artery stents x 3), type 2 diabetes and osteoarthritis. Timing/Duration: today Occured at: home Context: fall (After walking up steps and missing a step) Quality: sharpness Hip Pain Location: hip (R) Severity of Pain-Max: moderate Severity of Pain-Current: moderate Modifying Factors: Improves With: movement Symptoms prior to fall: none Associated Symptoms: denies symptoms Allergies/Adverse Reactions: morphine Adverse Reaction (Verified 11/07/24 13:15) PT STATES "IN LARGE DOSES I GET MOUTHY AND MEAN" STATES GETS CONFUSED Home Medications: Aspirin 81 mg PO HS 02/23/15 [History] Celecoxib 100 mg [celeBREX 100 MG] 200 mg PO DAILY 02/23/15 [History] Enalapril Maleate 10 mg [Vasotec 10 MG] 10 mg PO DAILY 02/23/15 [History] hydroCHLOROthiazide [Hydrochlorothiazide] 12.5 mg PO DAILY 02/23/15 [History] Gabapentin 800 mg PO TID 02/05/17 [History] Atorvastatin Calcium [Lipitor] 20 mg PO HS 05/23/20 [History] Clopidogrel Bisulfate [PLAVIX Tablet] 75 mg PO HS 05/23/20 [History] Metoprolol Tartrate 25 mg [Lopressor 25MG Tab] 25 mg PO HS 05/23/20 [History] Empagliflozin [Jardiance] 10 mg PO DAILY 03/12/24 [History] Fluticasone/Umeclidin/Vilanter [Trelegy Ellipta 100-62.5-25] 1 puff IH DAILY 03/12/24 [History] Prednisone 10 mg [Deltasone 10 mg] 10 mg PO DAILY 10/11/24 [History] Hx Tetanus, Diphtheria Vaccination/Date Given: Yes Hx Influenza Vaccination/Date Given: Yes Hx Pneumococcal Vaccination/Date Given: Yes Travel Risk - International Travel Have you traveled outside of the country in past 3 weeks: No - Emerging Infectious Disease Are you exhibiting symptoms associated with any current EIDs: No - Review of Systems Constitutional: No Symptoms Eyes: No Symptoms Ears, Nose, & Throat: No Symptoms Respiratory: No Symptoms Cardiac: No Symptoms Abdominal/Gastrointestinal: No Symptoms Genitourinary Symptoms: No Symptoms Musculoskeletal: Fall, Injury, Joint Pain (Right hip pain) Skin: No Symptoms Neurological: No Symptoms Psychological: No Symptoms Endocrine: No Symptoms Hematologic/Lymphatic: No Symptoms Immunological/Allergic: No Symptoms All Other Systems: Reviewed and Negative - Past Medical History Pertinent Past Medical History: Yes Neurological History: No Pertinent History ENT History: Cataracts Cardiac History: Coronary Artery Disease, High Cholesterol, Hypertension, Myocardial Infarction (NC), Other Respiratory History: Bronchitis, COPD, Emphysema Endocrine Medical History: Diabetes Type II Musculoskeletal History: Osteoarthritis GI Medical History: Diverticulitis History: Other Psycho-Social History: No Pertinent History Male Reproductive Disorders: No Pertinent History Other Medical History: PT. HAS THREE CARDIAC STENTS. SEE LIST IN START. RECENT KIDNEY STONE REMOVED. 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 cyst removed from colon. CATARACT REMOVAL - Social History Smoking Status: Current every day smoker How long have you smoked: 60 Exposure to second hand smoke: Yes Drug Use: none - Social Determinants of Health Will the patient participate in the screening: Yes Do you worry about a steady place to live?: No In the past 12 months,have you had to go without utilities?: No Transportation Issues: No Has anyone in your support network made you feel unsafe?: No Have you or anyone in your house had to go w/o enough food: No - Nursing Vital Signs Nursing Vital Signs: Initial Vital Signs Temperature 97.3 F 11/07/24 12:59 Pulse Rate 52 L 11/07/24 12:59 Respiratory Rate 15 11/07/24 12:59 Blood Pressure 101/55 11/07/24 12:59 O2 Sat by Pulse Oximetry 90 L 11/07/24 12:59 Pain Scale Pain Intensity 5 - Physical Exam General Appearance: no apparent distress, alert, anxiety, thin Eye Exam: PERRL/EOMI, eyes nml inspection Ears, Nose, Throat Exam: normal ENT inspection, moist mucous membranes Neck Exam: normal inspection, non-tender, supple, full range of motion Respiratory Exam: normal breath sounds, lungs clear, airway intact, No chest tenderness, No respiratory distress Cardiovascular Exam: regular rate/rhythm, normal heart sounds, normal peripheral pulses Gastrointestinal Exam: soft, normal bowel sounds, No tenderness Rectal Exam: not done Back Exam: normal inspection, normal range of motion, No CVA tenderness, No vertebral tenderness Extremity Exam: limited range of motion (Right hip), tenderness (Right hip) Neurologic Exam: alert, oriented x 3, cooperative, culinary assistant II-XII nml as tested, sensation nml Skin Exam: normal color, warm, dry Lymphatic Exam: No adenopathy SpO2 Interpretation: normal O2 Delivery: Room Air Ordered Tests: Active Orders 24 hr Category Date Time Status Platen Press Feeder STAT Care 11/07/24 13:05 Active EKG-ER Only STAT Care 11/07/24 13:05 Active IV Insertion STAT Care 11/07/24 13:05 Active FEMUR Stat Exams 11/07/24 13:06 Completed HIP UNI (2V) INCL PEL IF DONE Stat Exams 11/07/24 13:06 Completed CBC W DIFF Stat Lab 11/07/24 13:40 Completed CMP Stat Lab 11/07/24 13:40 Completed PROTIME WITH INR Stat Lab 11/07/24 13:40 Completed Medication Summary Generic Name Dose Route Start Last Admin Trade Name Freq PRN Reason Stop Dose Admin Fentanyl Citrate 25 mcg 11/07/24 16:57 Fentanyl Citrate 100 Mcg/2 Ml* Vial IV 11/07/24 16:58 STAT ONE Discontinued Medications Generic Name Dose Route Start Last Admin Trade Name Freq PRN Reason Stop Dose Admin Fentanyl Citrate 50 mcg 11/07/24 16:14 11/07/24 16:38 Fentanyl Citrate 100 Mcg/2 Ml* Vial IV 11/07/24 16:15 50 mcg STAT ONE Administration Fentanyl Citrate Confirm 11/07/24 16:35 Fentanyl Citrate 100 Mcg/2 Ml* Vial Administered 11/07/24 16:36 Dose 100 mcg .ROUTE .STK-MED ONE Ondansetron HCl 4 mg 11/07/24 16:14 11/07/24 16:38 Ondansetron Hcl 4 Mg/2 Ml Vial IV 11/07/24 16:15 4 mg STAT ONE Administration Ondansetron HCl Confirm 11/07/24 16:32 Ondansetron Hcl 4 Mg/2 Ml Vial Administered 11/07/24 16:33 Dose 4 mg .ROUTE .STK-MED ONE Lab/Rad Data: Laboratory Result Diagrams 11/07/24 13:40 11/07/24 13:40 Laboratory Results 11/07/24 11/07/24 11/07/24 Range/Units 13:40 13:40 13:40 WBC 6.5 (4.23-9.07) x10^3/uL RBC 5.24 (4.63-6.08) x10^6/uL Hgb 17.0 (13.7-17.5) g/dL Hct 52.4 H (40.1-51.0) % MCV 100.0 H (79.0-92.2) fL MCH 32.4 H (25.7-32.2) pg MCHC 32.4 (32.3-36.5) g/dL RDW 16.4 H (11.6-14.4) % Plt Count 161 L (163-337) x10^3/uL MPV 9.3 L (9.4-12.4) fL Gran % 65.1 (34.0-67.9) % Immature Gran % (Auto) 1.2 H (0.001-0.429) % Nucleat RBC Rel Count 0.0 (0.00-0.2) % Eos # (Auto) 0.13 (0.04-0.54) x10^3/uL Immature Gran # (Auto) 0.08 H (0.001-0.031) x10^3u/L Absolute Lymphs (auto) 1.40 (1.32-3.57) x10^3/uL Absolute Monos (auto) 0.62 (0.30-0.82) x10^3/uL Absolute Nucleated RBC 0.00 (0.00-0.012) x10^3u/L Lymphocytes % 21.4 L (21.8-53.1) % Monocytes % 9.5 (5.3-12.2) % Eosinophils % 2.0 (0.8-7.0) % Basophils % 0.8 (0.2-1.2) % Absolute Granulocytes 4.26 (1.78-5.38) x10^3/uL Basophils # 0.05 (0.01-0.08) x10^3/uL PT 11.2 (9.4-12.5) SECONDS INR 1.03 (0.8-3.0) Sodium 140 (135-145) mmol/L Potassium 3.9 (3.5-5.1) mmol/L Chloride 108 H (98-107) mmol/L Carbon Dioxide 22 (22-30) mmol/L Anion Gap 12.8 (5-15) MEQ/L BUN 21 H (9-20) mg/dL Creatinine 0.69 (0.66-1.25) mg/dL Estimated GFR 91.8 ML/MIN Glucose 130 H (74-106) mg/dL Calcium 8.4 (8.4-10.2) mg/dL Total Bilirubin 1.10 (0.2-1.3) mg/dL AST 33 (17-59) U/L ALT 45 (0-50) U/L Alkaline Phosphatase 66 (38-126) U/L Serum Total Protein 6.2 L (6.3-8.2) g/dL Albumin 3.9 (3.5-5.0) g/dL - Progress Progress: improved, pain not gone completely Progress Note: 11/07/24 13:31 My medical decision making of the assignment of moderate complexity to this patient's medical issue today is based on review of the patient's past medical history, review of the patient's medication list, review the patient drug allergy list, history present notes and physical findings on examination. The workup in this patient includes placement of intravenous line, CBC, CMP, PT/INR, x-ray of the patient's right hip, pelvis and right femur. Differential diagnosis includes but is not limited to right hip contusion, right hip fracture/dislocation, right femur fracture/dislocation 11/07/24 15:07 The following plain x-rays were interpreted by the radiologist and I reviewed the impressions: Right hip x-ray shows right total hip replacement with intact prosthesis. There is a comminuted, nondisplaced right femoral subtrochanteric fracture. There is right inferior iliac spine, presumed, avulsion fracture. Right femur x-ray shows a nondisplaced, nonhealed recent fracture line related to the greater trochanter extending to the intertrochanteric line. I spoke with the patient regarding his preference for orthopedic surgical intervention if indicated and he states he wants to go back to [facility]. Dr. Light performed his right hip replacement in November 2013. We will send these films to [facility] via the cloud, if possible. We will have the orthopedic surgeon who is on-call at [facility] evaluate this film to provide me with management/instructions and final disposition. 11/07/24 16:15 I spoke with [facility] orthopedic surgeon, Dr. Garcia, regarding this patient's clinical and radiographic findings of a right papi-prosthetic, comminuted, nondisplaced fracture. He states that we do not have the equipment nor the personnel to fix this type of fracture. I informed the patient. He agrees to have the films sent to and reviewed by the orthopedic surgical team/on-call orthopedic surgeon at [facility]. 11/07/24 16:[address] Light, the patient's orthopedic surgeon. The patient is no longer associated with [facility]. He does have a practice that works out of [employer] [place] and [facility] Dr. Light reviewed the radiographic studies and stated to me that this is a nondisplaced greater trochanter fracture with extension caudally into the inter trochanteric region. He states that the patient does not need surgical intervention. However, he does want the patient to be nonweightbearing. If he can be nonweightbearing and his pain is controlled as an outpatient, the patient can be discharged to home. Dr. Light will contact the patient either tomorrow or Saturday to see how he is doing. The patient is instructed to follow-up at [facility] emergency department if he cannot tolerate outpatient management. Counseled pt/family regarding: lab results, diagnosis, rad results - Departure Departure Disposition: Home Clinical Impression: Papi-prosthetic femoral shaft fracture Condition: Stable Critical Care Time: No Referrals: RITO GUTIERREZ MD [Primary Care Provider] - Follow up/PCP as directed Additional Instructions: You are to be nonweightbearing. Use the crutches. Take your pain medication and other medication as prescribed. You can always come to the [facility] emergency department. However, remember that our orthopedic surgeon will not intervene on this type of fracture. However, Dr. Light, your orthopedic surgeons states to go to [facility] emergency department if your pain is not well-controlled as an outpatient. Prescriptions: Oxycodone HCl/Acetaminophen [Percocet 5-325 mg Tablet] 1 each PO Q8H PRN PRN #10 tablet MDD 3 PRN Reason: Moderate To Severe Pain
[2024-11-07 13:10] VITALS: TEMP 97.3
[2024-11-07 13:49] LABS: Absolute Neutrophil Ct (ANC) 4.26 x10^3/uL (1.78-5.38); BASOPHIL % 0.8 % (0.2-1.2); Basophil (Absolute #) 0.05 x10^3/uL (0.01-0.08); Eosinophil (Absolute #) 0.13 x10^3/uL (0.04-0.54); Hematocrit 52.4 % (40.1-51.0); IMMATURE GRAN # 0.08 x10^3u/L (0.001-0.031); IMMATURE GRAN % 1.2 % (0.001-0.429); Lymphocytes % 21.4 % (21.8-53.1); Mean Corpuscular Hemoglobin 32.4 pg (25.7-32.2); Mean Corpuscular Hgb Concent. 32.4 g/dL (32.3-36.5); Mean Platelet Volume 9.3 fL (9.4-12.4); Monocyte (Absolute #) 0.62 x10^3/uL (0.30-0.82); Monocytes % 9.5 % (5.3-12.2); Neutrophil % 65.1 % (34.0-67.9); Platelet Count 161 x10^3/uL (163-337); Red Blood Count 5.24 x10^6/uL (4.63-6.08); Red Cell Distribution Width 16.4 % (11.6-14.4); White Blood Count 6.5 x10^3/uL (4.23-9.07)
[2024-11-07 13:59] LABS: ALBUMIN 3.9 g/dL (3.5-5.0); ANION GAP 12.8 MEQ/L (5-15); BILIRUBIN,TOTAL 1.1 mg/dL (0.2-1.3); Calcium 8.4 mg/dL (8.4-10.2); Creatinine 1 0.69 mg/dL (0.66-1.25); EST GLOMERULAR FILTRATION RATE 91.8 ML/MIN; INR 1.03 (0.8-3.0); PROTIME 11.2 SECONDS (9.4-12.5); Potassium 3.9 mmol/L (3.5-5.1); Total Protein 6.2 g/dL (6.3-8.2)
--- NOTE | 2024-11-07 14:29 | XRAY ---
CLINICAL HISTORY: Fall COMPARISON: None. TECHNIQUE: X-ray of the right hip in AP and lateral views including pelvis AP. FINDINGS: Pelvic Bones: Evidence of right total hip replacement with intact prosthesis. No infection or loosening. Comminuted non-displaced right femoral subtrochanteric fracture is noted. Bony projection at right anterior inferior iliac spine, likley related to an avulsion fracture. Subtle over coverage of the left femoral head, suggesting pincer-type Femoroacetabular impingement (ARMEN). Diffuse decreased bone density suggesting osteopenia. Degenerative changes of iliac, pubic bones and greater trochanters are noted. The left femoral heads are normal and centered within the acetabulum. No evidence of avascular necrosis. Hip Joints: Left mild hip osteoarthritis evident by mild narrowed joint space and sclerosed acetabular margins. No evidence of hip dislocation or subluxation. Mild degenerative changes of both sacroiliac joints, grade II sacroiliitis. Symphysis Pubis: Mild osteitis pubis evident by mild subchondral erosive change, joint irregularity and sclerosis. No evidence of separation or widening. Soft Tissues: Bilateral periarticular soft tissue calcifications are noted. A rounded radio-opaque right paraspinal shadow is seen at the level of the L4 vertebra, clinical correlation and further investigation as indicated is advised. Left lumbar threads like shadow is noted. Clinical correlation is advised. Visualized soft tissues are normal and unremarkable. No soft tissue swelling or masses. Loaded colon with fecal matter. IMPRESSION: 1. Right total hip replacement with intact prosthesis. 2. Comminuted non-displaced right femoral subtrochanteric fracture. CT is advised. 3. Bony projection at right anterior inferior iliac spine, likley related to avulsion fracture. 4. Subtle over coverage of left femoral head, suggesting pincer-type Femoroacetabular impingement (ARMEN). Clinical correlation is advised. 5. Mild left hip osteoarthritis. 6. Bilateral sacroiliitis grade II. 7. Degenerative changes of iliac, pubic bones and greater trochanters. 8. Mild osteitis pubis 9. Diffuse decreased bone density suggesting osteopenia. DEXA scan is advised . 10. A rounded radio-opaque right paraspinal shadow is seen at level of L4 vertebra...clinical correlation and further investigation as indicated is advised. DISCLAIMER:A subtle bone abnormality or fracture may not be readily apparent on x-rays, thus clinical correlation and further imaging including follow up CT, MRI, or follow up x-rays are advised as needed. Electronically Signed by: Oumar Chen MD. (11/07/2024 14:25:38 EDT)
--- NOTE | 2024-11-07 14:55 | XRAY ---
CLINICAL HISTORY: Fall COMPARISON: No prior studies are available for comparison. TECHNIQUE: X-ray images of the right femur were obtained in anteroposterior (AP) and lateral projections. FINDINGS: Bone Structure: A non-displaced and non-healed fracture line is noted related to the greater trochanter extending to the inter-trochanteric line. A generalized decrease in the bone density is noted, denoting underlying bony osteoporosis. The medullary canal is normal in appearance, with no lytic or sclerotic lesions noted. An abnormal irregularity is noted related to the right ischial tuberosity. Joint and Articular Surfaces: A right hip replacement is noted with the alignment of the prosthetic components appears appropriate. There is a lucency measuring approximately 2 mm adjacent to the femoral stem, which is suspicious for early loosening. Multiple marginal osteophytes are noted related to the acetabulum, denoting underlying degenerative changes.. Right knee arthritic changes are noted with marginal osteophytes and narrowed joint space. Soft Tissues: Abnormal linear calcifications are noted along the anatomical course of the superficial femoral and popliteal arteries, representing vascular calcifications. Periarticular and surrounding soft tissues appear normal. No signs of soft tissue swelling or masses. No evidence of infection or inflammatory processes observed. IMPRESSION: 1- A non-displaced and non-healed recent fracture line is noted related to the greater trochanter extending to the inter-trochanteric line for clinical correlation and better assessment with CT if clinically warranted. 2- A generalized decrease in the bone density is noted, denoting underlying bony osteoporosis. 3- Status post total right hip replacement. Lucency measuring approximately 2 mm adjacent to the femoral stem medially, which is suspicious for early loosening. 5- Multiple marginal osteophytes are noted related to the acetabulum, denoting underlying degenerative changes. 6- Right knee arthritic changes. Disclaimer: A subtle bone abnormality or fracture may not be readily apparent on X-rays. Clinical correlation and further imaging, including CT, MRI, or follow-up X-rays, are advised if clinically warranted. [facility] ER was called at [phone], Ext#[id number] at 01:48 AM SEARCH LEAD, 11/07/2024, and Dr. Oleary was informed regarding the presence of Significant Medical Findings in this report. Electronically Signed by: Oumar Chen MD. (11/07/2024 14:51:12 EDT)
[2024-11-07 16:05] VITALS: RESP 98
[2024-11-07] MEDS ORDERED: Zofran 4 MG/2 ML VIAL ONE (16:32)
[2024-11-07] MEDS ORDERED: SUBLIMAZE 100 MCG/2 ML ONE ×2 (16:35→17:09)
[2024-11-07] MEDS: Zofran 4 MG/2 ML VIAL IV ONE (16:38)
[2024-11-07] MEDS: SUBLIMAZE 100 MCG/2 ML IV ONE ×2 (16:38→17:11)
[2024-11-07 17:18] VITALS: BP 90/66; PULSE 76; O2SAT 92
== END 2024-11-07 17:40 | disposition home or self-care (01) ==
LOC: ED 12:54
DX: S72.24XA Nondisplaced subtrochanteric fracture of right femur, initial encounter for closed fracture (principal); M97.01XA Periprosthetic fracture around internal prosthetic right hip joint, initial encounter; W10.9XXA Fall (on) (from) unspecified stairs and steps, initial encounter; I10 Essential (primary) hypertension; E78.5 Hyperlipidemia, unspecified; E11.9 Type 2 diabetes mellitus without complications; Z79.02 Long term (current) use of antithrombotics/antiplatelets; Z79.84 Long term (current) use of oral hypoglycemic drugs; Z79.899 Other long term (current) drug therapy; Z72.0 Tobacco use
CPT/HCPCS: 36415; 73502; 73552; 80053; 85025; 85610; 93005; 93041; 96374; 96375; 96376; 99284; 99285; J2405; J3010